=== PATIENT | female | born 1960 | race Caucasian/White ===

== ENCOUNTER 2022-11-18 10:34 | Inpatient (IN) | payer MEDICARE, BC ==
[~2022-11-18] VITALS: Ht 160 cm; Wt 81.6 kg
[2022-11-18 13:55] VITALS: BP 121/56
[2022-11-18] MEDS ORDERED: HEPARIN SOD (PORCINE) 5000UNITS/ML 1ML VIAL/SYRINGE SC SCH (14:40)
[2022-11-18 15:22] LABS: ERYTHROCYTE SEDIMENTATION RATE 66 mm/hr (0-30)
[2022-11-18 15:50] LABS: HEMATOCRIT 30.7 % (36.0-47.0); HEMOGLOBIN 9.5 g/dl (12.0-15.5); MEAN CORPUSCULAR HEMOGLOBIN 26.7 pg (27.0-33.0); MEAN CORPUSCULAR HGB CONC 30.9 g/dl (32.0-36.5); MEAN CORPUSCULAR VOLUME 86.2 fl (80.0-96.0); PLATELET COUNT, AUTOMATED 231 10^3/uL (150-450); RED BLOOD COUNT 3.56 10^6/uL (4.00-5.40); WHITE BLOOD COUNT 17.4 10^3/uL (4.0-10.0)
[2022-11-18 16:02] LABS: BLOOD UREA NITROGEN 28 MG/DL (9-23); CALCIUM LEVEL 7.8 MG/DL (8.3-10.6); CARBON DIOXIDE LEVEL 31 MMOL/L (20-31); CHLORIDE LEVEL 102 MMOL/L (98-107); CREATININE FOR GFR 0.43 MG/DL (0.55-1.30); GLOMERULAR FILTRATION RATE > 60.0 (>45); GLUCOSE, FASTING 160 MG/DL (74-106); MAGNESIUM LEVEL 1.4 MG/DL (1.8-2.4); PHOSPHORUS LEVEL 3.7 MG/DL (2.4-5.1); SODIUM LEVEL 140 MMOL/L (136-145)
[2022-11-18 16:21] LABS: INR 3.58; PROTHROMBIN TIME 36.3 SECONDS (12.5-14.5)
[2022-11-18] MEDS ORDERED: IPRA0.00 INH (16:24)
[2022-11-18] MEDS ORDERED: ALBU2.5V10 INH (16:24)
[2022-11-18] MEDS ORDERED: BREO1INH INH (16:24)
[2022-11-18] MEDS ORDERED: ONDA4TAB6 PO (16:24)
[2022-11-18] MEDS ORDERED: PROB250C PO (16:24)
[2022-11-18] MEDS ORDERED: ACET-910 PO (16:24)
[2022-11-18] MEDS ORDERED: LEXA1TAB PO (16:24)
[2022-11-18] MEDS ORDERED: MAGN400T2 PO (16:24)
[2022-11-18] MEDS ORDERED: PROTPAK PO (16:24)
[2022-11-18] MEDS ORDERED: HYDR-3363 PO (16:24)
[2022-11-18] MEDS ORDERED: NOVOINJ SC (16:24)
[2022-11-18] MEDS ORDERED: METO25TA4 PO (16:24)
[2022-11-18] MEDS ORDERED: HOME MED LIST COMPLETE! XX SCH ×2 (16:25→18:15)
[2022-11-18 18:08] LABS: PERCENT SATURATION 3.5 % (13.2-45.0)
[2022-11-18 18:12] LABS: FOLATE 14.46 NG/ML (>5.4)
[2022-11-18] MEDS ORDERED: CARB1TAB PO (18:12)
[2022-11-18] MEDS ORDERED: TRAM50TA2 PO (18:12)
[2022-11-18] MEDS ORDERED: AMLO1TAB24 PO (18:12)
[2022-11-18] MEDS ORDERED: WARF-20 PO (18:12)
[2022-11-18] MEDS ORDERED: LISI5TAB11 PO (18:12)
[2022-11-18] MEDS: PIPERACILLIN/TAZOBACTAM SOD 3.375 GM in D5W MINI-BAG PLUS 50 ML IV SCH ×2 (18:53→23:40)
[2022-11-18] MEDS: MAG SULF 1GM/100ML (MAG RUN) 1 GM in IV 1 EA IV SCH ×2 (18:54→22:30)
[2022-11-18] MEDS ORDERED: GLUCOSE 4GM CHEW TABLET PO PRN (19:25)
[2022-11-18] MEDS ORDERED: ALBUTEROL SULFATE 2.5MG/0.5ML INH NEB SOLN INH PRN (19:25)
[2022-11-18] MEDS ORDERED: GLUCAGON INJ 1MG VIAL SC PRN (19:25)
[2022-11-18] MEDS ORDERED: ONDANSETRON 4MG ORAL DISINTEGRATING TAB PO PRN (19:25)
[2022-11-18] MEDS ORDERED: DEXTROSE 50% 50ML SYRINGE IV PRN (19:25)
[2022-11-18] MEDS: ADVAIR HFA 230/21MCG INHALER INH SCH (20:00)
[2022-11-18] MEDS: IPRATROPIUM 0.5MG/ALBUTEROL 2.5MG INH SOL UD 3ML (DUONEB) NEB SCH (20:00)
[2022-11-18] MEDS ORDERED: CARB25TA9 PO (20:55)
[2022-11-18] MEDS: INSULIN LISPRO (NovoLOG) PER UNIT SC SCH (21:00)
[2022-11-18 22:00] VITALS: BP 125/57
[2022-11-18] MEDS: NS 1,000 ML IV SCH (22:30)
[2022-11-18] MEDS: SINEMET 25-100 MG TAB PO SCH (22:31)
[2022-11-18] MEDS: METOPROLOL TART 12.5 MG PER 1/2 TAB PO SCH (22:31)
[2022-11-18] MEDS: MAGNESIUM OXIDE 400MG TAB (MAG-OX) PO SCH (22:32)
[2022-11-19] MEDS ORDERED: UNRESOLVED CLARIFICATION ENTRY XX SCH (00:01)
[2022-11-19] MEDS: IPRATROPIUM 0.5MG/ALBUTEROL 2.5MG INH SOL UD 3ML (DUONEB) NEB SCH ×4 (01:27→20:00)
[2022-11-19] MEDS: PIPERACILLIN/TAZOBACTAM SOD 3.375 GM in D5W MINI-BAG PLUS 50 ML IV SCH ×4 (04:46→23:00)
[2022-11-19 05:51] LABS: BASO % 0.2 % (0.0-1.0); EOS # 0.1 10^3/uL (0.0-0.5); EOS % 1.2 % (0.0-3.0); HEMATOCRIT 27.1 % (36.0-47.0); HEMOGLOBIN 8.3 g/dl (12.0-15.5); LYMPH # 0.7 10^3/uL (1.5-5.0); LYMPH % 5.7 % (24.0-44.0); MEAN CORPUSCULAR HEMOGLOBIN 26.3 pg (27.0-33.0); MEAN CORPUSCULAR HGB CONC 30.6 g/dl (32.0-36.5); MEAN CORPUSCULAR VOLUME 85.8 fl (80.0-96.0); MONO # 0.6 10^3/uL (0.0-0.8); MONO % 5.3 % (2.0-8.0); NEUTROPHILS # 10.4 10^3/uL (1.5-8.5); NEUTROPHILS % 86.8 % (36.0-66.0); PLATELET COUNT, AUTOMATED 174 10^3/uL (150-450); RED BLOOD COUNT 3.16 10^6/uL (4.00-5.40)
[2022-11-19 06:00] VITALS: BP 120/58
[2022-11-19 06:21] LABS: BLOOD UREA NITROGEN 25 MG/DL (9-23); CALCIUM LEVEL 7.4 MG/DL (8.3-10.6); CARBON DIOXIDE LEVEL 33 MMOL/L (20-31); CHLORIDE LEVEL 104 MMOL/L (98-107); CREATININE FOR GFR 0.39 MG/DL (0.55-1.30); GLOMERULAR FILTRATION RATE > 60.0 (>45); GLUCOSE, FASTING 175 MG/DL (74-106); MAGNESIUM LEVEL 1.6 MG/DL (1.8-2.4); PHOSPHORUS LEVEL 3.3 MG/DL (2.4-5.1); POTASSIUM SERUM 3.6 MMOL/L (3.5-5.1); SODIUM LEVEL 142 MMOL/L (136-145)
[2022-11-19] MEDS: ADVAIR HFA 230/21MCG INHALER INH SCH ×2 (07:51→21:05)
[2022-11-19] MEDS: INSULIN LISPRO (NovoLOG) PER UNIT SC SCH ×4 (09:17→21:00)
[2022-11-19] MEDS: ESCITALOPRAM OXALATE 10 MG TAB (LEXAPRO) PO SCH (09:18)
[2022-11-19] MEDS: lisinopriL 5 MG TAB PO SCH (09:19)
[2022-11-19] MEDS: MAGNESIUM OXIDE 400MG TAB (MAG-OX) PO SCH ×2 (09:19→21:39)
[2022-11-19] MEDS: METOPROLOL TART 12.5 MG PER 1/2 TAB PO SCH ×2 (09:19→21:39)
[2022-11-19] MEDS: amLODIPine 5 MG TAB PO SCH (09:20)
[2022-11-19] MEDS: SINEMET 25-100 MG TAB PO SCH ×3 (09:20→21:40)
[2022-11-19] MEDS: MAG SULF 1GM/100ML (MAG RUN) 1 GM in IV 1 EA IV SCH ×2 (09:25→13:10)
[2022-11-19] MEDS: NS 1,000 ML IV SCH (09:51)
[2022-11-19 13:15] LABS: INR 4.66; PROTHROMBIN TIME 44.6 SECONDS (12.5-14.5)
[2022-11-19 14:00] VITALS: BP 120/57
[2022-11-19 21:09] VITALS: BP 119/57
[2022-11-19] MEDS: traMADol 50 MG TAB PO PRN (21:40)
[2022-11-19] MEDS: PERCOCET 5MG/325MG TAB PO PRN (23:01)
[2022-11-20] MEDS: IPRATROPIUM 0.5MG/ALBUTEROL 2.5MG INH SOL UD 3ML (DUONEB) NEB SCH ×4 (02:26→20:00)
[2022-11-20] MEDS: PIPERACILLIN/TAZOBACTAM SOD 3.375 GM in D5W MINI-BAG PLUS 50 ML IV SCH ×4 (05:47→23:29)
[2022-11-20] MEDS: traMADol 50 MG TAB PO PRN (05:47)
[2022-11-20 06:00] VITALS: BP 138/72
[2022-11-20 06:21] LABS: HEMATOCRIT 27.6 % (36.0-47.0); HEMOGLOBIN 8.3 g/dl (12.0-15.5); MEAN CORPUSCULAR HEMOGLOBIN 26.2 pg (27.0-33.0); MEAN CORPUSCULAR HGB CONC 30.1 g/dl (32.0-36.5); MEAN CORPUSCULAR VOLUME 87.1 fl (80.0-96.0); PLATELET COUNT, AUTOMATED 134 10^3/uL (150-450); RED BLOOD COUNT 3.17 10^6/uL (4.00-5.40); WHITE BLOOD COUNT 7.9 10^3/uL (4.0-10.0)
[2022-11-20 07:11] LABS: BLOOD UREA NITROGEN 23 MG/DL (9-23); CALCIUM LEVEL 7.3 MG/DL (8.3-10.6); CARBON DIOXIDE LEVEL 32 MMOL/L (20-31); CHLORIDE LEVEL 105 MMOL/L (98-107); CREATININE FOR GFR 0.39 MG/DL (0.55-1.30); GLOMERULAR FILTRATION RATE > 60.0 (>45); GLUCOSE, FASTING 139 MG/DL (74-106); MAGNESIUM LEVEL 1.5 MG/DL (1.8-2.4); PHOSPHORUS LEVEL 3.5 MG/DL (2.4-5.1); POTASSIUM SERUM 3.8 MMOL/L (3.5-5.1); SODIUM LEVEL 143 MMOL/L (136-145)
[2022-11-20 07:56] LABS: INR 2.62; PROTHROMBIN TIME 28.4 SECONDS (12.5-14.5)
[2022-11-20] MEDS: ADVAIR HFA 230/21MCG INHALER INH SCH ×2 (08:22→21:11)
[2022-11-20] MEDS: ESCITALOPRAM OXALATE 10 MG TAB (LEXAPRO) PO SCH (09:13)
[2022-11-20] MEDS: SINEMET 25-100 MG TAB PO SCH ×3 (09:13→21:58)
[2022-11-20] MEDS: MAGNESIUM OXIDE 400MG TAB (MAG-OX) PO SCH ×2 (09:13→22:00)
[2022-11-20] MEDS: lisinopriL 5 MG TAB PO SCH (09:14)
[2022-11-20] MEDS: amLODIPine 5 MG TAB PO SCH (09:14)
[2022-11-20] MEDS: METOPROLOL TART 12.5 MG PER 1/2 TAB PO SCH ×2 (09:15→21:59)
[2022-11-20] MEDS: INSULIN LISPRO (NovoLOG) PER UNIT SC SCH ×4 (09:15→21:00)
[2022-11-20 11:30] LABS: ALBUMIN 1.6 G/DL (3.2-5.2)
[2022-11-20] MEDS ORDERED: WARFARIN SOD 4MG TAB PO ONE (17:00)
[2022-11-20 20:39] VITALS: BP 127/66
[2022-11-20] MEDS: PERCOCET 5MG/325MG TAB PO PRN (22:00)
[2022-11-21] MEDS: IPRATROPIUM 0.5MG/ALBUTEROL 2.5MG INH SOL UD 3ML (DUONEB) NEB SCH ×4 (02:53→20:00)
[2022-11-21] MEDS: PIPERACILLIN/TAZOBACTAM SOD 3.375 GM in D5W MINI-BAG PLUS 50 ML IV SCH ×5 (05:06→22:38)
[2022-11-21 05:27] VITALS: BP 130/65
[2022-11-21 06:23] LABS: HEMATOCRIT 27.7 % (36.0-47.0); HEMOGLOBIN 8.2 g/dl (12.0-15.5); MEAN CORPUSCULAR HEMOGLOBIN 25.9 pg (27.0-33.0); MEAN CORPUSCULAR HGB CONC 29.6 g/dl (32.0-36.5); MEAN CORPUSCULAR VOLUME 87.4 fl (80.0-96.0); PLATELET COUNT, AUTOMATED 116 10^3/uL (150-450); RED BLOOD COUNT 3.17 10^6/uL (4.00-5.40); WHITE BLOOD COUNT 6.9 10^3/uL (4.0-10.0)
[2022-11-21 06:37] LABS: INR 2.43; PROTHROMBIN TIME 26.8 SECONDS (12.5-14.5)
[2022-11-21 06:47] LABS: BLOOD UREA NITROGEN 20 MG/DL (9-23); CALCIUM LEVEL 7.6 MG/DL (8.3-10.6); CARBON DIOXIDE LEVEL 35 MMOL/L (20-31); CHLORIDE LEVEL 106 MMOL/L (98-107); CREATININE FOR GFR 0.42 MG/DL (0.55-1.30); GLOMERULAR FILTRATION RATE > 60.0 (>45); GLUCOSE, FASTING 138 MG/DL (74-106); MAGNESIUM LEVEL 1.5 MG/DL (1.8-2.4); PHOSPHORUS LEVEL 3.5 MG/DL (2.4-5.1); POTASSIUM SERUM 3.9 MMOL/L (3.5-5.1); SODIUM LEVEL 145 MMOL/L (136-145)
[2022-11-21 06:52] LABS: ERYTHROCYTE SEDIMENTATION RATE 53 mm/hr (0-30)
[2022-11-21] MEDS: lisinopriL 5 MG TAB PO SCH (08:16)
[2022-11-21] MEDS: PERCOCET 5MG/325MG TAB PO PRN ×2 (08:16→17:52)
[2022-11-21] MEDS: MAGNESIUM OXIDE 400MG TAB (MAG-OX) PO SCH ×2 (08:17→20:40)
[2022-11-21] MEDS: SINEMET 25-100 MG TAB PO SCH ×3 (08:17→20:41)
[2022-11-21] MEDS: ESCITALOPRAM OXALATE 10 MG TAB (LEXAPRO) PO SCH (08:18)
[2022-11-21] MEDS: METOPROLOL TART 12.5 MG PER 1/2 TAB PO SCH ×2 (08:18→20:40)
[2022-11-21] MEDS: amLODIPine 5 MG TAB PO SCH (08:18)
[2022-11-21] MEDS: INSULIN LISPRO (NovoLOG) PER UNIT SC SCH ×4 (08:19→21:00)
[2022-11-21] MEDS: ADVAIR HFA 230/21MCG INHALER INH SCH ×2 (08:40→20:18)
[2022-11-21 14:00] VITALS: BP 129/61
[2022-11-21] MEDS: WARFARIN SOD 5MG TAB PO SCH (17:53)
[2022-11-21] MEDS ORDERED: PROHANCE 279.3MG/ML 15ML VIAL As Ordered ONE (19:10)
[2022-11-21 20:39] VITALS: BP 130/61
[2022-11-22] MEDS: IPRATROPIUM 0.5MG/ALBUTEROL 2.5MG INH SOL UD 3ML (DUONEB) NEB SCH ×4 (01:11→19:49)
[2022-11-22] MEDS: PIPERACILLIN/TAZOBACTAM SOD 3.375 GM in D5W MINI-BAG PLUS 50 ML IV SCH ×4 (04:48→22:11)
[2022-11-22] MEDS: PERCOCET 5MG/325MG TAB PO PRN ×3 (05:18→19:41)
[2022-11-22 05:22] VITALS: BP 143/66
[2022-11-22 06:26] LABS: HEMATOCRIT 29.3 % (36.0-47.0); HEMOGLOBIN 8.7 g/dl (12.0-15.5); MEAN CORPUSCULAR HEMOGLOBIN 25.7 pg (27.0-33.0); MEAN CORPUSCULAR HGB CONC 29.7 g/dl (32.0-36.5); MEAN CORPUSCULAR VOLUME 86.7 fl (80.0-96.0); PLATELET COUNT, AUTOMATED 120 10^3/uL (150-450); RED BLOOD COUNT 3.38 10^6/uL (4.00-5.40); WHITE BLOOD COUNT 8.6 10^3/uL (4.0-10.0)
[2022-11-22 06:39] LABS: INR 2.69
[2022-11-22 06:43] LABS: ERYTHROCYTE SEDIMENTATION RATE 85 mm/hr (0-30)
[2022-11-22 06:51] LABS: BLOOD UREA NITROGEN 17 MG/DL (9-23); CALCIUM LEVEL 7.4 MG/DL (8.3-10.6); CARBON DIOXIDE LEVEL 35 MMOL/L (20-31); CHLORIDE LEVEL 104 MMOL/L (98-107); CREATININE FOR GFR 0.38 MG/DL (0.55-1.30); GLOMERULAR FILTRATION RATE > 60.0 (>45); GLUCOSE, FASTING 139 MG/DL (74-106); MAGNESIUM LEVEL 1.5 MG/DL (1.8-2.4); PHOSPHORUS LEVEL 2.9 MG/DL (2.4-5.1); SODIUM LEVEL 142 MMOL/L (136-145)
[2022-11-22] MEDS: ADVAIR HFA 230/21MCG INHALER INH SCH ×2 (08:10→19:49)
[2022-11-22] MEDS: SINEMET 25-100 MG TAB PO SCH ×3 (09:34→19:41)
[2022-11-22] MEDS: INSULIN LISPRO (NovoLOG) PER UNIT SC SCH ×4 (09:34→20:13)
[2022-11-22] MEDS: MAGNESIUM OXIDE 400MG TAB (MAG-OX) PO SCH ×2 (09:35→19:42)
[2022-11-22] MEDS: ACETAMINOPHEN TAB 650MG DOSE (2X325MG) PO PRN ×2 (09:35→17:56)
[2022-11-22] MEDS: METOPROLOL TART 12.5 MG PER 1/2 TAB PO SCH ×2 (09:36→19:42)
[2022-11-22] MEDS: traMADol 50 MG TAB PO PRN ×2 (09:37→17:56)
[2022-11-22] MEDS: lisinopriL 5 MG TAB PO SCH (09:37)
[2022-11-22] MEDS: ESCITALOPRAM OXALATE 10 MG TAB (LEXAPRO) PO SCH (09:37)
[2022-11-22] MEDS: amLODIPine 5 MG TAB PO SCH (09:38)
[2022-11-22] MEDS: DOCUSATE SODIUM 100MG CAPSULE PO SCH ×2 (11:50→19:42)
[2022-11-22] MEDS ORDERED: BISACODYL 10MG SUPP PR ONE (11:50)
[2022-11-22 14:00] VITALS: BP 141/66
[2022-11-22] MEDS ORDERED: MAG SULF 1GM/100ML (MAG RUN) 1 GM in IV 1 EA IV ONE (14:00)
[2022-11-22] MEDS: WARFARIN SOD 5MG TAB PO SCH (17:56)
[2022-11-22 20:09] VITALS: BP 135/65
[2022-11-23] MEDS: IPRATROPIUM 0.5MG/ALBUTEROL 2.5MG INH SOL UD 3ML (DUONEB) NEB SCH ×4 (01:36→20:00)
[2022-11-23] MEDS: PIPERACILLIN/TAZOBACTAM SOD 3.375 GM in D5W MINI-BAG PLUS 50 ML IV SCH ×4 (05:35→22:00)
[2022-11-23] MEDS: traMADol 50 MG TAB PO PRN ×2 (05:36→16:34)
[2022-11-23] MEDS: ACETAMINOPHEN TAB 650MG DOSE (2X325MG) PO PRN ×2 (05:36→16:35)
[2022-11-23 06:41] LABS: BASO % 0.3 % (0.0-1.0); EOS # 0.4 10^3/uL (0.0-0.5); EOS % 4.1 % (0.0-3.0); HEMATOCRIT 28.3 % (36.0-47.0); HEMOGLOBIN 8.5 g/dl (12.0-15.5); LYMPH # 1.5 10^3/uL (1.5-5.0); LYMPH % 17.5 % (24.0-44.0); MEAN CORPUSCULAR HEMOGLOBIN 25.8 pg (27.0-33.0); MEAN CORPUSCULAR VOLUME 85.8 fl (80.0-96.0); MONO # 0.4 10^3/uL (0.0-0.8); MONO % 4.5 % (2.0-8.0); NEUTROPHILS # 6.4 10^3/uL (1.5-8.5); NEUTROPHILS % 72.3 % (36.0-66.0); PLATELET COUNT, AUTOMATED 103 10^3/uL (150-450); WHITE BLOOD COUNT 8.8 10^3/uL (4.0-10.0)
[2022-11-23 06:49] LABS: INR 3.36; PROTHROMBIN TIME 34.5 SECONDS (12.5-14.5)
[2022-11-23 07:02] VITALS: BP 135/64
[2022-11-23 07:11] LABS: BLOOD UREA NITROGEN 17 MG/DL (9-23); CALCIUM LEVEL 7.8 MG/DL (8.3-10.6); CARBON DIOXIDE LEVEL 37 MMOL/L (20-31); CHLORIDE LEVEL 105 MMOL/L (98-107); GLOMERULAR FILTRATION RATE > 60.0 (>45); GLUCOSE, FASTING 128 MG/DL (74-106); MAGNESIUM LEVEL 1.6 MG/DL (1.8-2.4); PHOSPHORUS LEVEL 3.4 MG/DL (2.4-5.1); SODIUM LEVEL 144 MMOL/L (136-145)
[2022-11-23] MEDS: ADVAIR HFA 230/21MCG INHALER INH SCH ×2 (08:53→20:05)
[2022-11-23] MEDS: DOCUSATE SODIUM 100MG CAPSULE PO SCH ×2 (09:00→20:42)
[2022-11-23] MEDS: MAGNESIUM OXIDE 400MG TAB (MAG-OX) PO SCH ×3 (09:11→20:41)
[2022-11-23] MEDS: INSULIN LISPRO (NovoLOG) PER UNIT SC SCH ×4 (09:11→21:00)
[2022-11-23] MEDS: SINEMET 25-100 MG TAB PO SCH ×3 (09:12→20:41)
[2022-11-23] MEDS: PERCOCET 5MG/325MG TAB PO PRN ×2 (09:12→20:49)
[2022-11-23] MEDS: ESCITALOPRAM OXALATE 10 MG TAB (LEXAPRO) PO SCH (09:12)
[2022-11-23] MEDS: METOPROLOL TART 12.5 MG PER 1/2 TAB PO SCH ×2 (09:13→20:41)
[2022-11-23] MEDS: lisinopriL 5 MG TAB PO SCH (09:13)
[2022-11-23] MEDS: amLODIPine 5 MG TAB PO SCH (09:13)
[2022-11-23 09:55] LABS: ERYTHROCYTE SEDIMENTATION RATE 51 mm/hr (0-30)
[2022-11-23 14:00] VITALS: BP 132/66
[2022-11-23 20:48] VITALS: BP 133/67
[2022-11-24] MEDS: IPRATROPIUM 0.5MG/ALBUTEROL 2.5MG INH SOL UD 3ML (DUONEB) NEB SCH ×4 (00:50→19:48)
[2022-11-24] MEDS: traMADol 50 MG TAB PO PRN ×2 (01:57→08:31)
[2022-11-24] MEDS: PIPERACILLIN/TAZOBACTAM SOD 3.375 GM in D5W MINI-BAG PLUS 50 ML IV SCH ×3 (04:23→16:54)
[2022-11-24] MEDS: PERCOCET 5MG/325MG TAB PO PRN ×2 (04:32→12:01)
[2022-11-24 05:49] VITALS: BP 136/69
[2022-11-24 06:42] LABS: INR 3.44; PROTHROMBIN TIME 35.2 SECONDS (12.5-14.5)
[2022-11-24 06:44] LABS: BASO % 0.4 % (0.0-1.0); EOS # 0.3 10^3/uL (0.0-0.5); EOS % 3.5 % (0.0-3.0); HEMATOCRIT 27.8 % (36.0-47.0); HEMOGLOBIN 8.4 g/dl (12.0-15.5); LYMPH # 1.4 10^3/uL (1.5-5.0); LYMPH % 16.1 % (24.0-44.0); MEAN CORPUSCULAR HEMOGLOBIN 25.8 pg (27.0-33.0); MEAN CORPUSCULAR HGB CONC 30.2 g/dl (32.0-36.5); MEAN CORPUSCULAR VOLUME 85.5 fl (80.0-96.0); MONO # 0.4 10^3/uL (0.0-0.8); MONO % 4.6 % (2.0-8.0); NEUTROPHILS # 6.3 10^3/uL (1.5-8.5); NEUTROPHILS % 74.4 % (36.0-66.0); RED BLOOD COUNT 3.25 10^6/uL (4.00-5.40); WHITE BLOOD COUNT 8.4 10^3/uL (4.0-10.0)
[2022-11-24 06:51] LABS: PLATELET COUNT, AUTOMATED 96 10^3/uL (150-450)
[2022-11-24 07:18] LABS: BLOOD UREA NITROGEN 20 MG/DL (9-23); CALCIUM LEVEL 7.9 MG/DL (8.3-10.6); CARBON DIOXIDE LEVEL 35 MMOL/L (20-31); CHLORIDE LEVEL 104 MMOL/L (98-107); GLOMERULAR FILTRATION RATE > 60.0 (>45); GLUCOSE, FASTING 143 MG/DL (74-106); MAGNESIUM LEVEL 1.5 MG/DL (1.8-2.4); PHOSPHORUS LEVEL 3.2 MG/DL (2.4-5.1); POTASSIUM SERUM 3.9 MMOL/L (3.5-5.1); SODIUM LEVEL 142 MMOL/L (136-145)
[2022-11-24] MEDS: ADVAIR HFA 230/21MCG INHALER INH SCH ×2 (07:49→19:47)
[2022-11-24] MEDS: METOPROLOL TART 12.5 MG PER 1/2 TAB PO SCH ×2 (08:29→21:46)
[2022-11-24] MEDS: SINEMET 25-100 MG TAB PO SCH ×3 (08:29→21:46)
[2022-11-24] MEDS: MAGNESIUM OXIDE 400MG TAB (MAG-OX) PO SCH ×3 (08:29→21:46)
[2022-11-24] MEDS: DOCUSATE SODIUM 100MG CAPSULE PO SCH (08:29)
[2022-11-24] MEDS: lisinopriL 5 MG TAB PO SCH (08:30)
[2022-11-24] MEDS: ESCITALOPRAM OXALATE 10 MG TAB (LEXAPRO) PO SCH (08:30)
[2022-11-24] MEDS: amLODIPine 5 MG TAB PO SCH (08:30)
[2022-11-24] MEDS: INSULIN LISPRO (NovoLOG) PER UNIT SC SCH ×4 (08:32→21:00)
[2022-11-24] MEDS: DOCUSATE SOD LIQ 100MG/10ML UDC PO SCH (21:46)
[2022-11-24 23:32] VITALS: BP 134/77
[2022-11-25] MEDS: PIPERACILLIN/TAZOBACTAM SOD 3.375 GM in D5W MINI-BAG PLUS 50 ML IV SCH ×3 (00:28→11:29)
[2022-11-25] MEDS: IPRATROPIUM 0.5MG/ALBUTEROL 2.5MG INH SOL UD 3ML (DUONEB) NEB SCH ×4 (01:03→19:42)
[2022-11-25 06:00] VITALS: BP 143/82
[2022-11-25 06:13] LABS: BASO % 0.4 % (0.0-1.0); EOS # 0.3 10^3/uL (0.0-0.5); EOS % 3.6 % (0.0-3.0); HEMATOCRIT 28.4 % (36.0-47.0); HEMOGLOBIN 8.5 g/dl (12.0-15.5); LYMPH # 1.4 10^3/uL (1.5-5.0); LYMPH % 17.7 % (24.0-44.0); MEAN CORPUSCULAR HEMOGLOBIN 25.8 pg (27.0-33.0); MEAN CORPUSCULAR HGB CONC 29.9 g/dl (32.0-36.5); MEAN CORPUSCULAR VOLUME 86.1 fl (80.0-96.0); MONO # 0.4 10^3/uL (0.0-0.8); MONO % 5.3 % (2.0-8.0); NEUTROPHILS # 5.7 10^3/uL (1.5-8.5); NEUTROPHILS % 71.9 % (36.0-66.0); PLATELET COUNT, AUTOMATED 101 10^3/uL (150-450); WHITE BLOOD COUNT 7.9 10^3/uL (4.0-10.0)
[2022-11-25 06:20] LABS: INR 3.26; PROTHROMBIN TIME 33.7 SECONDS (12.5-14.5)
[2022-11-25] MEDS: PERCOCET 5MG/325MG TAB PO PRN ×3 (07:19→18:00)
[2022-11-25 07:42] LABS: BLOOD UREA NITROGEN 18 MG/DL (9-23); CALCIUM LEVEL 7.4 MG/DL (8.3-10.6); CARBON DIOXIDE LEVEL 35 MMOL/L (20-31); CHLORIDE LEVEL 105 MMOL/L (98-107); CREATININE FOR GFR 0.43 MG/DL (0.55-1.30); GLOMERULAR FILTRATION RATE > 60.0 (>45); GLUCOSE, FASTING 105 MG/DL (74-106); MAGNESIUM LEVEL 1.5 MG/DL (1.8-2.4); PHOSPHORUS LEVEL 3.1 MG/DL (2.4-5.1); POTASSIUM SERUM 3.8 MMOL/L (3.5-5.1); SODIUM LEVEL 143 MMOL/L (136-145)
[2022-11-25] MEDS: ADVAIR HFA 230/21MCG INHALER INH SCH ×2 (07:51→19:42)
[2022-11-25 08:00] VITALS: BP 170/82
[2022-11-25] MEDS: DOCUSATE SOD LIQ 100MG/10ML UDC PO SCH ×2 (09:25→21:49)
[2022-11-25] MEDS: SINEMET 25-100 MG TAB PO SCH ×3 (09:25→21:49)
[2022-11-25] MEDS: MAGNESIUM OXIDE 400MG TAB (MAG-OX) PO SCH ×3 (09:26→21:49)
[2022-11-25] MEDS: METOPROLOL TART 12.5 MG PER 1/2 TAB PO SCH ×2 (09:26→21:49)
[2022-11-25] MEDS: lisinopriL 5 MG TAB PO SCH (09:27)
[2022-11-25] MEDS: ESCITALOPRAM OXALATE 10 MG TAB (LEXAPRO) PO SCH (09:27)
[2022-11-25] MEDS: amLODIPine 5 MG TAB PO SCH (09:27)
[2022-11-25] MEDS: INSULIN LISPRO (NovoLOG) PER UNIT SC SCH ×4 (09:32→21:00)
[2022-11-25 14:40] VITALS: BP 132/69
[2022-11-25] MEDS: traMADol 50 MG TAB PO PRN (15:24)
[2022-11-25 22:00] VITALS: BP 130/53
[2022-11-26] MEDS: IPRATROPIUM 0.5MG/ALBUTEROL 2.5MG INH SOL UD 3ML (DUONEB) NEB SCH ×4 (00:58→20:30)
[2022-11-26 06:00] VITALS: BP 110/62
[2022-11-26 06:58] LABS: INR 2.27; PROTHROMBIN TIME 25.4 SECONDS (12.5-14.5)
[2022-11-26] MEDS: ADVAIR HFA 230/21MCG INHALER INH SCH ×2 (07:24→20:30)
[2022-11-26] MEDS: INSULIN LISPRO (NovoLOG) PER UNIT SC SCH ×4 (09:39→20:11)
[2022-11-26] MEDS: SINEMET 25-100 MG TAB PO SCH ×3 (09:42→20:21)
[2022-11-26] MEDS: amLODIPine 5 MG TAB PO SCH (09:42)
[2022-11-26] MEDS: MAGNESIUM OXIDE 400MG TAB (MAG-OX) PO SCH ×3 (09:42→20:20)
[2022-11-26] MEDS: METOPROLOL TART 12.5 MG PER 1/2 TAB PO SCH ×2 (09:42→20:21)
[2022-11-26] MEDS: lisinopriL 5 MG TAB PO SCH (09:42)
[2022-11-26] MEDS: ACETAMINOPHEN TAB 650MG DOSE (2X325MG) PO PRN (09:43)
[2022-11-26] MEDS: ESCITALOPRAM OXALATE 10 MG TAB (LEXAPRO) PO SCH (09:43)
[2022-11-26] MEDS: DOCUSATE SOD LIQ 100MG/10ML UDC PO SCH ×2 (09:43→20:20)
[2022-11-26] MEDS: traMADol 50 MG TAB PO PRN (11:14)
[2022-11-26] MEDS: PERCOCET 5MG/325MG TAB PO PRN ×2 (11:14→20:22)
[2022-11-26] MEDS: PIPERACILLIN/TAZOBACTAM SOD 3.375 GM in D5W MINI-BAG PLUS 50 ML IV SCH ×2 (13:07→18:32)
[2022-11-26 14:00] VITALS: BP 125/64
[2022-11-26 22:10] VITALS: BP 127/66
[2022-11-27] MEDS: PIPERACILLIN/TAZOBACTAM SOD 3.375 GM in D5W MINI-BAG PLUS 50 ML IV SCH ×4 (01:02→18:12)
[2022-11-27] MEDS: IPRATROPIUM 0.5MG/ALBUTEROL 2.5MG INH SOL UD 3ML (DUONEB) NEB SCH ×4 (01:53→20:12)
[2022-11-27 05:41] VITALS: BP 162/79
[2022-11-27] MEDS: PERCOCET 5MG/325MG TAB PO PRN (06:15)
[2022-11-27 07:24] LABS: INR 2.01; PROTHROMBIN TIME 23.1 SECONDS (12.5-14.5)
[2022-11-27] MEDS: ADVAIR HFA 230/21MCG INHALER INH SCH ×2 (07:57→20:13)
[2022-11-27] MEDS: DOCUSATE SOD LIQ 100MG/10ML UDC PO SCH ×2 (08:30→20:50)
[2022-11-27] MEDS: MAGNESIUM OXIDE 400MG TAB (MAG-OX) PO SCH ×3 (08:30→20:50)
[2022-11-27] MEDS: INSULIN LISPRO (NovoLOG) PER UNIT SC SCH ×4 (08:30→20:36)
[2022-11-27] MEDS: SINEMET 25-100 MG TAB PO SCH ×3 (08:30→20:51)
[2022-11-27] MEDS: ESCITALOPRAM OXALATE 10 MG TAB (LEXAPRO) PO SCH (08:31)
[2022-11-27] MEDS: METOPROLOL TART 12.5 MG PER 1/2 TAB PO SCH ×2 (08:32→20:50)
[2022-11-27] MEDS: amLODIPine 5 MG TAB PO SCH (08:32)
[2022-11-27] MEDS: lisinopriL 5 MG TAB PO SCH (08:32)
[2022-11-27] MEDS: traMADol 50 MG TAB PO PRN (11:34)
[2022-11-27] MEDS: ACETAMINOPHEN TAB 650MG DOSE (2X325MG) PO PRN (11:34)
[2022-11-27 14:00] VITALS: BP 142/75
[2022-11-27 16:00] VITALS: BP 162/79
[2022-11-27] MEDS: ARGATROBAN 250 MG in D5W 247.5 ML IV SCH (16:35)
[2022-11-27 17:00] VITALS: BP 155/91
[2022-11-27 20:00] VITALS: BP 150/82
[2022-11-28] VITALS (9 sets, daily range): BP systolic 125–175; BP diastolic 58–81; O2SAT 94
[2022-11-28] MEDS: PIPERACILLIN/TAZOBACTAM SOD 3.375 GM in D5W MINI-BAG PLUS 50 ML IV SCH ×4 (00:59→20:19)
[2022-11-28] MEDS: IPRATROPIUM 0.5MG/ALBUTEROL 2.5MG INH SOL UD 3ML (DUONEB) NEB SCH ×4 (01:09→19:15)
[2022-11-28 04:45] LABS: HEMATOCRIT 28.1 % (36.0-47.0); HEMOGLOBIN 8.6 g/dl (12.0-15.5); MEAN CORPUSCULAR HGB CONC 30.6 g/dl (32.0-36.5); MEAN CORPUSCULAR VOLUME 84.9 fl (80.0-96.0); PLATELET COUNT, AUTOMATED 123 10^3/uL (150-450); RED BLOOD COUNT 3.31 10^6/uL (4.00-5.40); WHITE BLOOD COUNT 8.7 10^3/uL (4.0-10.0)
[2022-11-28 04:56] LABS: INR 2.88; PROTHROMBIN TIME 30.6 SECONDS (12.5-14.5)
[2022-11-28] MEDS ORDERED: levETIRAcetam INJection 1,000 MG in D5W 100 ML IV ONE (05:00)
[2022-11-28 05:11] LABS: ABG BASE EXCESS 6.9 (-2.0-2.0); ABG HCO3 32.3 MEQ/L (22.0-26.0); ABG PARTIAL PRESSURE CO2 50.3 mmHg (35.0-45.0); ABG STANDARD HCO3 30.7 MEQ/L (22.0-26.0); ABG TOTAL CO2 33.8 MEQ/L (23.0-31.0); ABG pH (ARTERIAL) 7.425 UNITS (7.350-7.450)
[2022-11-28 05:43] LABS: BLOOD UREA NITROGEN 16 MG/DL (9-23); CALCIUM LEVEL 7.4 MG/DL (8.3-10.6); CARBON DIOXIDE LEVEL 32 MMOL/L (20-31); CHLORIDE LEVEL 105 MMOL/L (98-107); CREATININE FOR GFR 0.35 MG/DL (0.55-1.30); GLOMERULAR FILTRATION RATE > 60.0 (>45); GLUCOSE, FASTING 127 MG/DL (74-106); MAGNESIUM LEVEL 1.4 MG/DL (1.8-2.4); PHOSPHORUS LEVEL 3.1 MG/DL (2.4-5.1); POTASSIUM SERUM 3.8 MMOL/L (3.5-5.1); SODIUM LEVEL 142 MMOL/L (136-145)
[2022-11-28 06:13] LABS: AMORPHOUS SEDIMENT SMALL (NEGATIVE); APPEARANCE, URINE CLOUDY (CLEAR); BACTERIA, URINE AUTO NEGATIVE (NEGATIVE); BILIRUBIN, URINE AUTO NEGATIVE (NEGATIVE); BLOOD, URINE BLOOD NEGATIVE (NEGATIVE); COLOR, URINE YELLOW (YELLOW); GLUCOSE, URINE (UA) AUTO NEGATIVE (NEGATIVE); KETONE, URINE AUTO TRACE mg/dL (NEGATIVE); LEUKOCYTE ESTERASE, URINE AUTO NEGATIVE (NEGATIVE); NITRITE, URINE AUTO NEGATIVE (NEGATIVE); PROTEIN, URINE AUTO NEGATIVE (NEGATIVE); RBC, URINE AUTO 19 /HPF (0-3); SPECIFIC GRAVITY URINE AUTO 1.017 (1.002-1.035); SQUAMOUS EPITHELIAL CELL UR AU 0 /HPF (0-6); UROBILINOGEN, URINE AUTO 0.2 mg/dL (0.0-2.0); WBC, URINE AUTO 1 /HPF (0-3)
[2022-11-28] MEDS ORDERED: MAG SULF 1GM/100ML (MAG RUN) 1 GM in IV 1 EA IV ONE (07:00)
[2022-11-28] MEDS: INSULIN LISPRO (NovoLOG) PER UNIT SC SCH ×4 (07:30→20:47)
[2022-11-28] MEDS: ADVAIR HFA 230/21MCG INHALER INH SCH ×2 (07:33→19:15)
[2022-11-28] MEDS: DOCUSATE SOD LIQ 100MG/10ML UDC PO SCH ×2 (08:50→20:20)
[2022-11-28] MEDS: MAGNESIUM OXIDE 400MG TAB (MAG-OX) PO SCH ×3 (08:51→20:20)
[2022-11-28] MEDS: SINEMET 25-100 MG TAB PO SCH ×3 (08:51→20:20)
[2022-11-28] MEDS: amLODIPine 5 MG TAB PO SCH (08:54)
[2022-11-28] MEDS: METOPROLOL TART 12.5 MG PER 1/2 TAB PO SCH ×2 (08:54→20:21)
[2022-11-28] MEDS: lisinopriL 5 MG TAB PO SCH (08:55)
[2022-11-28] MEDS: ESCITALOPRAM OXALATE 10 MG TAB (LEXAPRO) PO SCH (09:13)
[2022-11-28] MEDS ORDERED: LIDOCAINE 1% MDV 20ML VIAL As Ordered ONE (12:56)
[2022-11-28] MEDS ORDERED: SODIUM CHLORIDE 0.9% INJ 10 ML SYR IV PRN (15:10)
[2022-11-28 15:52] LABS: INR 1.7; PROTHROMBIN TIME 20.3 SECONDS (12.5-14.5)
[2022-11-28] MEDS: ARGATROBAN 250 MG in D5W 247.5 ML IV SCH (16:00)
[2022-11-28 16:17] LABS: PARTIAL THROMBOPLASTIN TIME 46.9 SECONDS (24.8-34.2)
[2022-11-28] MEDS: SODIUM CHLORIDE 0.9% INJ 10 ML SYR IV SCH (18:26)
[2022-11-28] MEDS: ACETAMINOPHEN TAB 650MG DOSE (2X325MG) PO PRN (20:20)
[2022-11-29] VITALS (7 sets, daily range): BP systolic 124–165; BP diastolic 59–69
[2022-11-29] MEDS: PIPERACILLIN/TAZOBACTAM SOD 3.375 GM in D5W MINI-BAG PLUS 50 ML IV SCH ×4 (01:19→18:44)
[2022-11-29] MEDS: IPRATROPIUM 0.5MG/ALBUTEROL 2.5MG INH SOL UD 3ML (DUONEB) NEB SCH ×4 (01:22→19:54)
[2022-11-29] MEDS: PERCOCET 5MG/325MG TAB PO PRN (05:42)
[2022-11-29] MEDS: SODIUM CHLORIDE 0.9% INJ 10 ML SYR IV SCH ×2 (05:53→18:22)
[2022-11-29 06:20] LABS: INR 3.94; PROTHROMBIN TIME 39.1 SECONDS (12.5-14.5)
[2022-11-29 06:22] LABS: PARTIAL THROMBOPLASTIN TIME 99.2 SECONDS (24.8-34.2)
[2022-11-29] MEDS: ADVAIR HFA 230/21MCG INHALER INH SCH ×2 (07:08→19:54)
[2022-11-29 08:34] LABS: HEMATOCRIT 27.8 % (36.0-47.0); HEMOGLOBIN 8.6 g/dl (12.0-15.5); MEAN CORPUSCULAR HEMOGLOBIN 26.2 pg (27.0-33.0); MEAN CORPUSCULAR HGB CONC 30.9 g/dl (32.0-36.5); MEAN CORPUSCULAR VOLUME 84.8 fl (80.0-96.0); PLATELET COUNT, AUTOMATED 104 10^3/uL (150-450); RED BLOOD COUNT 3.28 10^6/uL (4.00-5.40); WHITE BLOOD COUNT 8.2 10^3/uL (4.0-10.0)
[2022-11-29] MEDS: MAGNESIUM OXIDE 400MG TAB (MAG-OX) PO SCH ×3 (09:27→22:37)
[2022-11-29] MEDS: DOCUSATE SOD LIQ 100MG/10ML UDC PO SCH ×2 (09:27→22:36)
[2022-11-29] MEDS: SINEMET 25-100 MG TAB PO SCH ×3 (09:27→22:37)
[2022-11-29] MEDS: ESCITALOPRAM OXALATE 10 MG TAB (LEXAPRO) PO SCH (09:28)
[2022-11-29] MEDS: METOPROLOL TART 12.5 MG PER 1/2 TAB PO SCH ×2 (09:28→22:38)
[2022-11-29] MEDS: amLODIPine 5 MG TAB PO SCH (09:29)
[2022-11-29] MEDS: INSULIN LISPRO (NovoLOG) PER UNIT SC SCH ×4 (09:29→21:00)
[2022-11-29] MEDS: lisinopriL 5 MG TAB PO SCH (09:30)
[2022-11-29 10:31] LABS: ALKALINE PHOSPHATASE 102 U/L (46-116); ALT/SGPT 9 U/L (7.0-40); AST/SGOT 18 U/L (<34); BILIRUBIN,TOTAL 0.4 MG/DL (0.3-1.2); BLOOD UREA NITROGEN 13 MG/DL (9-23); CALCIUM LEVEL 7.4 MG/DL (8.3-10.6); CARBON DIOXIDE LEVEL 30 MMOL/L (20-31); CHLORIDE LEVEL 104 MMOL/L (98-107); CREATININE FOR GFR 0.38 MG/DL (0.55-1.30); GLOMERULAR FILTRATION RATE > 60.0 (>45); GLUCOSE, FASTING 143 MG/DL (74-106); MAGNESIUM LEVEL 1.4 MG/DL (1.8-2.4); POTASSIUM SERUM 3.5 MMOL/L (3.5-5.1); SODIUM LEVEL 139 MMOL/L (136-145); TOTAL PROTEIN 4.9 G/DL (5.7-8.2)
[2022-11-29 13:45] LABS: INR 1.88; PROTHROMBIN TIME 21.9 SECONDS (12.5-14.5)
[2022-11-29] MEDS ORDERED: WARFARIN SOD 5MG TAB PO ONE (15:00)
[2022-11-29 15:34] LABS: PARTIAL THROMBOPLASTIN TIME 55.4 SECONDS (24.8-34.2)
[2022-11-29] MEDS: ARGATROBAN 250 MG in D5W 247.5 ML IV SCH (16:16)
[2022-11-29] MEDS ORDERED: MIRALAX *UNIT DOSE* 17GM PACKET PO PRN (18:15)
[2022-11-29] MEDS ORDERED: SENNA 8.6 MG TAB (SENOKOT) PO PRN (18:15)
[2022-11-29] MEDS: ACETAMINOPHEN TAB 650MG DOSE (2X325MG) PO PRN (22:38)
[2022-11-30 00:46] VITALS: BP 140/60
[2022-11-30] MEDS: IPRATROPIUM 0.5MG/ALBUTEROL 2.5MG INH SOL UD 3ML (DUONEB) NEB SCH ×3 (01:04→13:16)
[2022-11-30] MEDS: PIPERACILLIN/TAZOBACTAM SOD 3.375 GM in D5W MINI-BAG PLUS 50 ML IV SCH ×4 (01:09→18:43)
[2022-11-30] MEDS: MAGNESIUM OXIDE 400MG TAB (MAG-OX) PO SCH ×4 (02:44→20:12)
[2022-11-30 04:44] VITALS: BP 148/64
[2022-11-30] MEDS: SODIUM CHLORIDE 0.9% INJ 10 ML SYR IV SCH ×2 (05:58→18:42)
[2022-11-30 07:25] LABS: INR 2.57
[2022-11-30 07:27] LABS: PARTIAL THROMBOPLASTIN TIME 81.8 SECONDS (24.8-34.2)
[2022-11-30 08:00] VITALS: BP 152/75
[2022-11-30] MEDS: ADVAIR HFA 230/21MCG INHALER INH SCH ×2 (08:00→19:12)
[2022-11-30] MEDS ORDERED: WARFARIN SOD 4MG TAB PO SCH (09:00)
[2022-11-30] MEDS: INSULIN LISPRO (NovoLOG) PER UNIT SC SCH ×4 (09:00→20:06)
[2022-11-30] MEDS: MAG SULF 1GM/100ML (MAG RUN) 1 GM in IV 1 EA IV SCH ×2 (09:01→10:51)
[2022-11-30] MEDS: ESCITALOPRAM OXALATE 10 MG TAB (LEXAPRO) PO SCH (09:01)
[2022-11-30] MEDS: DOCUSATE SOD LIQ 100MG/10ML UDC PO SCH ×2 (09:01→20:13)
[2022-11-30] MEDS: METOPROLOL TART 12.5 MG PER 1/2 TAB PO SCH ×2 (09:02→20:12)
[2022-11-30] MEDS: amLODIPine 5 MG TAB PO SCH (09:02)
[2022-11-30] MEDS: SINEMET 25-100 MG TAB PO SCH ×3 (09:03→20:13)
[2022-11-30] MEDS: lisinopriL 5 MG TAB PO SCH (09:03)
[2022-11-30 09:04] LABS: BASO % 0.6 % (0.0-1.0); EOS # 0.2 10^3/uL (0.0-0.5); EOS % 2.3 % (0.0-3.0); HEMATOCRIT 28.7 % (36.0-47.0); HEMOGLOBIN 8.9 g/dl (12.0-15.5); LYMPH # 1.2 10^3/uL (1.5-5.0); LYMPH % 18.3 % (24.0-44.0); MEAN CORPUSCULAR HEMOGLOBIN 26.5 pg (27.0-33.0); MEAN CORPUSCULAR VOLUME 85.4 fl (80.0-96.0); MONO # 0.4 10^3/uL (0.0-0.8); MONO % 6.5 % (2.0-8.0); NEUTROPHILS # 4.7 10^3/uL (1.5-8.5); NEUTROPHILS % 71.7 % (36.0-66.0); PLATELET COUNT, AUTOMATED 136 10^3/uL (150-450); RED BLOOD COUNT 3.36 10^6/uL (4.00-5.40); WHITE BLOOD COUNT 6.5 10^3/uL (4.0-10.0)
[2022-11-30 09:12] LABS: BLOOD UREA NITROGEN 13 MG/DL (9-23); CARBON DIOXIDE LEVEL 33 MMOL/L (20-31); CHLORIDE LEVEL 104 MMOL/L (98-107); CREATININE FOR GFR 0.35 MG/DL (0.55-1.30); GLOMERULAR FILTRATION RATE > 60.0 (>45); GLUCOSE, FASTING 113 MG/DL (74-106); MAGNESIUM LEVEL 1.3 MG/DL (1.8-2.4); POTASSIUM SERUM 3.6 MMOL/L (3.5-5.1); SODIUM LEVEL 142 MMOL/L (136-145)
[2022-11-30 11:58] LABS: INR 2.81
[2022-11-30 12:00] VITALS: BP 131/62
[2022-11-30] MEDS: PERCOCET 5MG/325MG TAB PO PRN ×2 (14:00→20:14)
[2022-11-30 16:00] VITALS: BP 120/58
[2022-11-30] MEDS: ARGATROBAN 250 MG in D5W 247.5 ML IV SCH (16:32)
[2022-11-30] MEDS ORDERED: WARFARIN SOD 5MG TAB PO SCH (17:00)
[2022-11-30 20:00] VITALS: BP 113/58
[2022-12-01] VITALS: BP 123/59
[2022-12-01] MEDS: PIPERACILLIN/TAZOBACTAM SOD 3.375 GM in D5W MINI-BAG PLUS 50 ML IV SCH ×4 (01:11→18:50)
[2022-12-01] MEDS: MAGNESIUM OXIDE 400MG TAB (MAG-OX) PO SCH ×4 (02:48→20:43)
[2022-12-01] MEDS: PERCOCET 5MG/325MG TAB PO PRN ×3 (03:20→20:47)
[2022-12-01 04:00] VITALS: BP 130/71
[2022-12-01] MEDS: SODIUM CHLORIDE 0.9% INJ 10 ML SYR IV SCH ×2 (05:11→18:50)
[2022-12-01 05:47] LABS: BASO % 0.5 % (0.0-1.0); EOS # 0.2 10^3/uL (0.0-0.5); EOS % 2.6 % (0.0-3.0); LYMPH # 1.5 10^3/uL (1.5-5.0); MEAN CORPUSCULAR HEMOGLOBIN 25.8 pg (27.0-33.0); MONO # 0.5 10^3/uL (0.0-0.8); NEUTROPHILS % 68.4 % (36.0-66.0); PLATELET COUNT, AUTOMATED 143 10^3/uL (150-450); RED BLOOD COUNT 3.49 10^6/uL (4.00-5.40); WHITE BLOOD COUNT 7.3 10^3/uL (4.0-10.0)
[2022-12-01 06:08] LABS: BLOOD UREA NITROGEN 13 MG/DL (9-23); CALCIUM LEVEL 7.7 MG/DL (8.3-10.6); CARBON DIOXIDE LEVEL 33 MMOL/L (20-31); CHLORIDE LEVEL 103 MMOL/L (98-107); CREATININE FOR GFR 0.39 MG/DL (0.55-1.30); GLOMERULAR FILTRATION RATE > 60.0 (>45); GLUCOSE, FASTING 112 MG/DL (74-106); MAGNESIUM LEVEL 1.6 MG/DL (1.8-2.4); POTASSIUM SERUM 3.6 MMOL/L (3.5-5.1); SODIUM LEVEL 139 MMOL/L (136-145)
[2022-12-01 06:11] LABS: INR 2.67; PROTHROMBIN TIME 28.9 SECONDS (12.5-14.5)
[2022-12-01] MEDS: ADVAIR HFA 230/21MCG INHALER INH SCH ×2 (07:16→19:49)
[2022-12-01] MEDS ORDERED: MAG SULF 1GM/100ML (MAG RUN) 1 GM in IV 1 EA IV ONE (07:45)
[2022-12-01 08:00] VITALS: BP 147/65
[2022-12-01] MEDS: DOCUSATE SOD LIQ 100MG/10ML UDC PO SCH ×2 (09:06→20:43)
[2022-12-01] MEDS: INSULIN LISPRO (NovoLOG) PER UNIT SC SCH ×4 (09:06→21:00)
[2022-12-01] MEDS: SINEMET 25-100 MG TAB PO SCH ×3 (09:07→20:43)
[2022-12-01] MEDS: METOPROLOL TART 12.5 MG PER 1/2 TAB PO SCH ×2 (09:07→20:45)
[2022-12-01] MEDS: ESCITALOPRAM OXALATE 10 MG TAB (LEXAPRO) PO SCH (09:08)
[2022-12-01] MEDS: lisinopriL 5 MG TAB PO SCH (09:08)
[2022-12-01] MEDS: amLODIPine 5 MG TAB PO SCH (09:09)
[2022-12-01 12:00] VITALS: BP 132/60
[2022-12-01 12:31] LABS: INR 1.8; PROTHROMBIN TIME 21.2 SECONDS (12.5-14.5)
[2022-12-01] MEDS: ARGATROBAN 250 MG in D5W 247.5 ML IV SCH (12:55)
[2022-12-01 16:21] VITALS: BP 121/56
[2022-12-01] MEDS: WARFARIN SOD 7.5MG TAB PO SCH (18:50)
[2022-12-01 20:00] VITALS: BP 136/63
[2022-12-02] VITALS: BP 132/66
[2022-12-02] MEDS: PIPERACILLIN/TAZOBACTAM SOD 3.375 GM in D5W MINI-BAG PLUS 50 ML IV SCH ×2 (00:46→06:11)
[2022-12-02] MEDS: traMADol 50 MG TAB PO PRN ×2 (01:11→15:50)
[2022-12-02] MEDS: MAGNESIUM OXIDE 400MG TAB (MAG-OX) PO SCH ×4 (02:36→20:46)
[2022-12-02] MEDS: PERCOCET 5MG/325MG TAB PO PRN ×2 (02:45→12:09)
[2022-12-02 04:00] VITALS: BP 140/62
[2022-12-02 05:35] LABS: BASO % 0.4 % (0.0-1.0); EOS # 0.2 10^3/uL (0.0-0.5); HEMATOCRIT 28.4 % (36.0-47.0); HEMOGLOBIN 8.6 g/dl (12.0-15.5); LYMPH # 1.3 10^3/uL (1.5-5.0); LYMPH % 19.4 % (24.0-44.0); MEAN CORPUSCULAR HEMOGLOBIN 25.8 pg (27.0-33.0); MEAN CORPUSCULAR HGB CONC 30.3 g/dl (32.0-36.5); MEAN CORPUSCULAR VOLUME 85.3 fl (80.0-96.0); MONO # 0.5 10^3/uL (0.0-0.8); NEUTROPHILS # 4.7 10^3/uL (1.5-8.5); NEUTROPHILS % 68.8 % (36.0-66.0); PLATELET COUNT, AUTOMATED 141 10^3/uL (150-450); RED BLOOD COUNT 3.33 10^6/uL (4.00-5.40); WHITE BLOOD COUNT 6.8 10^3/uL (4.0-10.0)
[2022-12-02 05:46] LABS: INR 2.99; PROTHROMBIN TIME 31.5 SECONDS (12.5-14.5)
[2022-12-02] MEDS: SODIUM CHLORIDE 0.9% INJ 10 ML SYR IV SCH ×2 (06:11→15:20)
[2022-12-02 06:17] LABS: BLOOD UREA NITROGEN 13 MG/DL (9-23); CALCIUM LEVEL 7.5 MG/DL (8.3-10.6); CARBON DIOXIDE LEVEL 35 MMOL/L (20-31); CHLORIDE LEVEL 103 MMOL/L (98-107); CREATININE FOR GFR 0.39 MG/DL (0.55-1.30); GLOMERULAR FILTRATION RATE > 60.0 (>45); GLUCOSE, FASTING 127 MG/DL (74-106); MAGNESIUM LEVEL 1.6 MG/DL (1.8-2.4); POTASSIUM SERUM 3.7 MMOL/L (3.5-5.1); SODIUM LEVEL 140 MMOL/L (136-145)
[2022-12-02] MEDS ORDERED: MAG SULF 1GM/100ML (MAG RUN) 1 GM in IV 1 EA IV ONE (07:35)
[2022-12-02] MEDS: ADVAIR HFA 230/21MCG INHALER INH SCH ×2 (07:35→19:49)
[2022-12-02 08:15] VITALS: BP 113/57
[2022-12-02] MEDS: INSULIN LISPRO (NovoLOG) PER UNIT SC SCH ×4 (08:22→20:31)
[2022-12-02] MEDS: amLODIPine 5 MG TAB PO SCH (08:22)
[2022-12-02] MEDS: ESCITALOPRAM OXALATE 10 MG TAB (LEXAPRO) PO SCH (08:23)
[2022-12-02] MEDS: METOPROLOL TART 12.5 MG PER 1/2 TAB PO SCH ×2 (08:23→20:49)
[2022-12-02] MEDS: DOCUSATE SOD LIQ 100MG/10ML UDC PO SCH (08:23)
[2022-12-02] MEDS: SINEMET 25-100 MG TAB PO SCH ×3 (08:23→20:46)
[2022-12-02] MEDS: lisinopriL 5 MG TAB PO SCH (08:23)
[2022-12-02] MEDS ORDERED: DOCUSATE SOD LIQ 100MG/10ML UDC PO PRN (08:45)
[2022-12-02 11:11] LABS: INR 2.09; PROTHROMBIN TIME 23.8 SECONDS (12.5-14.5)
[2022-12-02 12:00] VITALS: BP 134/63
[2022-12-02] MEDS: AUGMENTIN 875 MG TAB PO SCH ×2 (12:09→20:47)
[2022-12-02] MEDS ORDERED: WARFARIN SOD 2.5MG TAB PO ONE (13:00)
[2022-12-02] MEDS: WARFARIN SOD 7.5MG TAB PO SCH (15:20)
[2022-12-02 15:23] VITALS: BP 137/63
[2022-12-02 20:00] VITALS: BP 114/55
[2022-12-03] VITALS: BP 144/69
[2022-12-03] MEDS: ACETAMINOPHEN TAB 650MG DOSE (2X325MG) PO PRN ×2 (00:26→20:27)
[2022-12-03] MEDS: PERCOCET 5MG/325MG TAB PO PRN ×3 (01:29→16:27)
[2022-12-03] MEDS: MAGNESIUM OXIDE 400MG TAB (MAG-OX) PO SCH ×4 (03:00→20:26)
[2022-12-03 04:14] LABS: BASO % 0.6 % (0.0-1.0); EOS # 0.1 10^3/uL (0.0-0.5); HEMATOCRIT 27.2 % (36.0-47.0); HEMOGLOBIN 8.2 g/dl (12.0-15.5); LYMPH # 1.1 10^3/uL (1.5-5.0); LYMPH % 16.9 % (24.0-44.0); MEAN CORPUSCULAR HEMOGLOBIN 26.1 pg (27.0-33.0); MEAN CORPUSCULAR HGB CONC 30.1 g/dl (32.0-36.5); MEAN CORPUSCULAR VOLUME 86.6 fl (80.0-96.0); MONO # 0.5 10^3/uL (0.0-0.8); MONO % 7.9 % (2.0-8.0); NEUTROPHILS # 4.8 10^3/uL (1.5-8.5); NEUTROPHILS % 72.3 % (36.0-66.0); PLATELET COUNT, AUTOMATED 157 10^3/uL (150-450); RED BLOOD COUNT 3.14 10^6/uL (4.00-5.40); WHITE BLOOD COUNT 6.6 10^3/uL (4.0-10.0)
[2022-12-03 04:20] VITALS: BP 122/73
[2022-12-03 04:25] LABS: INR 1.84; PROTHROMBIN TIME 21.6 SECONDS (12.5-14.5)
[2022-12-03 04:28] LABS: BLOOD UREA NITROGEN 13 MG/DL (9-23); CALCIUM LEVEL 7.5 MG/DL (8.3-10.6); CARBON DIOXIDE LEVEL 39 MMOL/L (20-31); CHLORIDE LEVEL 102 MMOL/L (98-107); CREATININE FOR GFR 0.38 MG/DL (0.55-1.30); GLOMERULAR FILTRATION RATE > 60.0 (>45); GLUCOSE, FASTING 128 MG/DL (74-106); MAGNESIUM LEVEL 1.6 MG/DL (1.8-2.4); POTASSIUM SERUM 3.8 MMOL/L (3.5-5.1); SODIUM LEVEL 142 MMOL/L (136-145)
[2022-12-03] MEDS: SODIUM CHLORIDE 0.9% INJ 10 ML SYR IV SCH (05:05)
[2022-12-03] MEDS ORDERED: ARGATROBAN 50 MG in IV 1 EA IV SCH (07:00)
[2022-12-03] MEDS: ADVAIR HFA 230/21MCG INHALER INH SCH ×2 (07:39→20:12)
[2022-12-03 07:48] VITALS: BP 128/62
[2022-12-03] MEDS: INSULIN LISPRO (NovoLOG) PER UNIT SC SCH ×4 (09:33→20:50)
[2022-12-03] MEDS: SINEMET 25-100 MG TAB PO SCH ×3 (09:33→20:26)
[2022-12-03] MEDS: METOPROLOL TART 12.5 MG PER 1/2 TAB PO SCH ×2 (09:33→20:27)
[2022-12-03] MEDS: amLODIPine 5 MG TAB PO SCH (09:34)
[2022-12-03] MEDS: AUGMENTIN 875 MG TAB PO SCH ×2 (09:34→20:26)
[2022-12-03] MEDS: ESCITALOPRAM OXALATE 10 MG TAB (LEXAPRO) PO SCH (09:34)
[2022-12-03] MEDS: lisinopriL 5 MG TAB PO SCH (09:34)
[2022-12-03] MEDS: ARGATROBAN 250 MG/250ML for non-ESRD patients IV SCH ×4 (11:51→21:20)
[2022-12-03 12:00] VITALS: BP 147/66
[2022-12-03 15:31] VITALS: BP 157/71
[2022-12-03] MEDS: WARFARIN SOD 7.5MG TAB PO SCH (16:28)
[2022-12-03 19:57] VITALS: BP 157/71
[2022-12-04] VITALS (8 sets, daily range): BP systolic 128–164; BP diastolic 60–96
[2022-12-04] MEDS: MAGNESIUM OXIDE 400MG TAB (MAG-OX) PO SCH ×4 (02:36→22:15)
[2022-12-04] MEDS: PERCOCET 5MG/325MG TAB PO PRN ×3 (02:37→22:18)
[2022-12-04 05:24] LABS: BASO # 0.1 10^3/uL (0.0-0.2); BASO % 0.7 % (0.0-1.0); EOS # 0.2 10^3/uL (0.0-0.5); EOS % 2.2 % (0.0-3.0); HEMATOCRIT 29.8 % (36.0-47.0); HEMOGLOBIN 9.2 g/dl (12.0-15.5); LYMPH # 1.1 10^3/uL (1.5-5.0); LYMPH % 15.4 % (24.0-44.0); MEAN CORPUSCULAR HEMOGLOBIN 26.7 pg (27.0-33.0); MEAN CORPUSCULAR HGB CONC 30.9 g/dl (32.0-36.5); MEAN CORPUSCULAR VOLUME 86.4 fl (80.0-96.0); MONO # 0.6 10^3/uL (0.0-0.8); MONO % 8.4 % (2.0-8.0); NEUTROPHILS # 5.2 10^3/uL (1.5-8.5); PLATELET COUNT, AUTOMATED 203 10^3/uL (150-450); RED BLOOD COUNT 3.45 10^6/uL (4.00-5.40); WHITE BLOOD COUNT 7.1 10^3/uL (4.0-10.0)
[2022-12-04 05:42] LABS: BLOOD UREA NITROGEN 9 MG/DL (9-23); CALCIUM LEVEL 7.5 MG/DL (8.3-10.6); CARBON DIOXIDE LEVEL 35 MMOL/L (20-31); CHLORIDE LEVEL 101 MMOL/L (98-107); CREATININE FOR GFR 0.33 MG/DL (0.55-1.30); GLOMERULAR FILTRATION RATE > 60.0 (>45); GLUCOSE, FASTING 137 MG/DL (74-106); INR 3.17; MAGNESIUM LEVEL 1.3 MG/DL (1.8-2.4); POTASSIUM SERUM 3.7 MMOL/L (3.5-5.1); SODIUM LEVEL 140 MMOL/L (136-145)
[2022-12-04] MEDS ORDERED: WARFARIN SOD 2.5MG TAB PO ONE (07:15)
[2022-12-04] MEDS: ADVAIR HFA 230/21MCG INHALER INH SCH ×2 (07:26→19:48)
[2022-12-04] MEDS: INSULIN LISPRO (NovoLOG) PER UNIT SC SCH ×4 (07:58→21:00)
[2022-12-04] MEDS: AUGMENTIN 875 MG TAB PO SCH ×2 (07:58→22:15)
[2022-12-04] MEDS: METOPROLOL TART 12.5 MG PER 1/2 TAB PO SCH ×2 (07:59→22:16)
[2022-12-04] MEDS: SINEMET 25-100 MG TAB PO SCH ×3 (07:59→22:15)
[2022-12-04] MEDS: traMADol 50 MG TAB PO PRN (07:59)
[2022-12-04] MEDS: amLODIPine 5 MG TAB PO SCH (08:00)
[2022-12-04] MEDS: ESCITALOPRAM OXALATE 10 MG TAB (LEXAPRO) PO SCH (08:00)
[2022-12-04] MEDS: lisinopriL 5 MG TAB PO SCH (08:01)
[2022-12-04 14:31] LABS: INR 3.47; PROTHROMBIN TIME 35.4 SECONDS (12.5-14.5)
[2022-12-04] MEDS: ARGATROBAN 50MG/50ML for non-ESRD patients IV SCH ×2 (18:03)
[2022-12-04] MEDS: WARFARIN SOD 7.5MG TAB PO SCH (18:03)
[2022-12-05] VITALS: BP 150/68
[2022-12-05 04:07] VITALS: BP 139/72
[2022-12-05] MEDS: MAGNESIUM OXIDE 400MG TAB (MAG-OX) PO SCH ×4 (04:27→21:29)
[2022-12-05 05:26] LABS: BASO # 0.1 10^3/uL (0.0-0.2); BASO % 0.7 % (0.0-1.0); EOS # 0.2 10^3/uL (0.0-0.5); EOS % 2.5 % (0.0-3.0); HEMATOCRIT 29.3 % (36.0-47.0); LYMPH # 1.2 10^3/uL (1.5-5.0); LYMPH % 15.3 % (24.0-44.0); MEAN CORPUSCULAR HEMOGLOBIN 26.4 pg (27.0-33.0); MEAN CORPUSCULAR HGB CONC 30.7 g/dl (32.0-36.5); MEAN CORPUSCULAR VOLUME 85.9 fl (80.0-96.0); MONO # 0.7 10^3/uL (0.0-0.8); MONO % 8.2 % (2.0-8.0); NEUTROPHILS # 5.9 10^3/uL (1.5-8.5); NEUTROPHILS % 72.9 % (36.0-66.0); PLATELET COUNT, AUTOMATED 225 10^3/uL (150-450); RED BLOOD COUNT 3.41 10^6/uL (4.00-5.40)
[2022-12-05 05:40] LABS: INR 3.56; PROTHROMBIN TIME 36.1 SECONDS (12.5-14.5)
[2022-12-05 05:41] LABS: PARTIAL THROMBOPLASTIN TIME 94.5 SECONDS (24.8-34.2)
[2022-12-05 05:55] LABS: BLOOD UREA NITROGEN 9 MG/DL (9-23); CALCIUM LEVEL 7.7 MG/DL (8.3-10.6); CARBON DIOXIDE LEVEL 35 MMOL/L (20-31); CHLORIDE LEVEL 101 MMOL/L (98-107); CREATININE FOR GFR 0.32 MG/DL (0.55-1.30); GLOMERULAR FILTRATION RATE > 60.0 (>45); GLUCOSE, FASTING 138 MG/DL (74-106); MAGNESIUM LEVEL 1.4 MG/DL (1.8-2.4); POTASSIUM SERUM 3.7 MMOL/L (3.5-5.1); SODIUM LEVEL 140 MMOL/L (136-145)
[2022-12-05 07:23] VITALS: BP 155/73
[2022-12-05] MEDS: INSULIN LISPRO (NovoLOG) PER UNIT SC SCH ×4 (07:30→21:00)
[2022-12-05] MEDS: ADVAIR HFA 230/21MCG INHALER INH SCH ×2 (08:06→19:10)
[2022-12-05] MEDS: SINEMET 25-100 MG TAB PO SCH ×3 (08:09→21:29)
[2022-12-05] MEDS: AUGMENTIN 875 MG TAB PO SCH ×2 (08:10→21:29)
[2022-12-05] MEDS: ESCITALOPRAM OXALATE 10 MG TAB (LEXAPRO) PO SCH (08:10)
[2022-12-05] MEDS: PERCOCET 5MG/325MG TAB PO PRN ×2 (08:10→21:30)
[2022-12-05] MEDS: METOPROLOL TART 12.5 MG PER 1/2 TAB PO SCH ×2 (08:12→21:31)
[2022-12-05] MEDS: amLODIPine 5 MG TAB PO SCH (08:12)
[2022-12-05] MEDS: lisinopriL 5 MG TAB PO SCH (08:13)
[2022-12-05] MEDS: ARGATROBAN 50MG/50ML for non-ESRD patients IV SCH ×2 (10:00)
[2022-12-05 12:00] VITALS: BP 157/67
[2022-12-05] MEDS: MAG SULF 1GM/100ML (MAG RUN) 1 GM in IV 1 EA IV SCH ×2 (13:00→13:01)
[2022-12-05 16:46] VITALS: BP 137/65
[2022-12-05] MEDS ORDERED: WARFARIN SOD 5MG TAB PO SCH (17:00)
[2022-12-05 20:00] VITALS: BP 134/67
[2022-12-05] MEDS: traMADol 50 MG TAB PO PRN (21:31)
[2022-12-06] VITALS (8 sets, daily range): BP systolic 108–158; BP diastolic 57–79
[2022-12-06] MEDS: MAGNESIUM OXIDE 400MG TAB (MAG-OX) PO SCH ×4 (04:46→21:07)
[2022-12-06 05:10] LABS: BASO # 0.1 10^3/uL (0.0-0.2); BASO % 1.1 % (0.0-1.0); EOS # 0.2 10^3/uL (0.0-0.5); EOS % 3.7 % (0.0-3.0); HEMATOCRIT 27.7 % (36.0-47.0); HEMOGLOBIN 8.2 g/dl (12.0-15.5); LYMPH # 1.3 10^3/uL (1.5-5.0); LYMPH % 23.5 % (24.0-44.0); MEAN CORPUSCULAR HGB CONC 29.6 g/dl (32.0-36.5); MEAN CORPUSCULAR VOLUME 87.9 fl (80.0-96.0); MONO # 0.6 10^3/uL (0.0-0.8); MONO % 10.3 % (2.0-8.0); NEUTROPHILS # 3.3 10^3/uL (1.5-8.5); PLATELET COUNT, AUTOMATED 206 10^3/uL (150-450); RED BLOOD COUNT 3.15 10^6/uL (4.00-5.40); WHITE BLOOD COUNT 5.5 10^3/uL (4.0-10.0)
[2022-12-06 05:39] LABS: BLOOD UREA NITROGEN 9 MG/DL (9-23); CALCIUM LEVEL 7.5 MG/DL (8.3-10.6); CARBON DIOXIDE LEVEL 30 MMOL/L (20-31); CHLORIDE LEVEL 104 MMOL/L (98-107); CREATININE FOR GFR 0.37 MG/DL (0.55-1.30); GLOMERULAR FILTRATION RATE > 60.0 (>45); GLUCOSE, FASTING 115 MG/DL (74-106); MAGNESIUM LEVEL 1.4 MG/DL (1.8-2.4); SODIUM LEVEL 141 MMOL/L (136-145)
[2022-12-06] MEDS: ADVAIR HFA 230/21MCG INHALER INH SCH ×2 (08:09→20:00)
[2022-12-06] MEDS ORDERED: FUROSEMIDE 20 MG TAB PO SCH (09:00)
[2022-12-06] MEDS ORDERED: MAG SULF 1GM/100ML (MAG RUN) 1 GM in IV 1 EA IV ONE (09:30)
[2022-12-06] MEDS: INSULIN LISPRO (NovoLOG) PER UNIT SC SCH ×4 (10:15→21:00)
[2022-12-06 10:17] LABS: INR 2.93
[2022-12-06] MEDS: lisinopriL 5 MG TAB PO SCH (10:31)
[2022-12-06] MEDS: SINEMET 25-100 MG TAB PO SCH ×3 (10:31→21:07)
[2022-12-06] MEDS: AUGMENTIN 875 MG TAB PO SCH ×2 (10:31→21:07)
[2022-12-06] MEDS: amLODIPine 5 MG TAB PO SCH (10:32)
[2022-12-06] MEDS: METOPROLOL TART 12.5 MG PER 1/2 TAB PO SCH ×2 (10:32→21:08)
[2022-12-06] MEDS: traMADol 50 MG TAB PO PRN ×2 (10:33→21:06)
[2022-12-06] MEDS: ESCITALOPRAM OXALATE 10 MG TAB (LEXAPRO) PO SCH (10:33)
[2022-12-06] MEDS: PERCOCET 5MG/325MG TAB PO PRN (15:43)
[2022-12-06] MEDS ORDERED: WARFARIN SOD 5MG TAB PO SCH (17:00)
[2022-12-07] MEDS: traMADol 50 MG TAB PO PRN (02:47)
[2022-12-07] MEDS: MAGNESIUM OXIDE 400MG TAB (MAG-OX) PO SCH ×2 (02:47→09:37)
[2022-12-07] MEDS: PERCOCET 5MG/325MG TAB PO PRN (05:08)
[2022-12-07 06:16] VITALS: BP 146/77
[2022-12-07 06:28] LABS: BASO # 0.1 10^3/uL (0.0-0.2); BASO % 0.7 % (0.0-1.0); EOS # 0.2 10^3/uL (0.0-0.5); EOS % 2.4 % (0.0-3.0); HEMATOCRIT 31.3 % (36.0-47.0); HEMOGLOBIN 9.3 g/dl (12.0-15.5); LYMPH % 14.4 % (24.0-44.0); MEAN CORPUSCULAR HEMOGLOBIN 25.8 pg (27.0-33.0); MEAN CORPUSCULAR HGB CONC 29.7 g/dl (32.0-36.5); MEAN CORPUSCULAR VOLUME 86.7 fl (80.0-96.0); MONO # 0.6 10^3/uL (0.0-0.8); NEUTROPHILS # 5.2 10^3/uL (1.5-8.5); NEUTROPHILS % 74.4 % (36.0-66.0); PLATELET COUNT, AUTOMATED 252 10^3/uL (150-450); RED BLOOD COUNT 3.61 10^6/uL (4.00-5.40)
[2022-12-07 06:57] LABS: BLOOD UREA NITROGEN 9 MG/DL (9-23); CALCIUM LEVEL 7.8 MG/DL (8.3-10.6); CARBON DIOXIDE LEVEL 37 MMOL/L (20-31); CHLORIDE LEVEL 102 MMOL/L (98-107); CREATININE FOR GFR 0.35 MG/DL (0.55-1.30); GLOMERULAR FILTRATION RATE > 60.0 (>45); GLUCOSE, FASTING 144 MG/DL (74-106); MAGNESIUM LEVEL 1.4 MG/DL (1.8-2.4); POTASSIUM SERUM 3.8 MMOL/L (3.5-5.1); SODIUM LEVEL 142 MMOL/L (136-145)
[2022-12-07] MEDS: ADVAIR HFA 230/21MCG INHALER INH SCH (07:59)
[2022-12-07 08:27] LABS: INR 3.03; PROTHROMBIN TIME 31.9 SECONDS (12.5-14.5)
[2022-12-07 09:37] VITALS: BP 146/77
[2022-12-07] MEDS: METOPROLOL TART 12.5 MG PER 1/2 TAB PO SCH (09:37)
[2022-12-07] MEDS: lisinopriL 5 MG TAB PO SCH (09:37)
[2022-12-07] MEDS: ESCITALOPRAM OXALATE 10 MG TAB (LEXAPRO) PO SCH (09:37)
[2022-12-07] MEDS: AUGMENTIN 875 MG TAB PO SCH (09:37)
[2022-12-07] MEDS: amLODIPine 5 MG TAB PO SCH (09:37)
[2022-12-07] MEDS: INSULIN LISPRO (NovoLOG) PER UNIT SC SCH (09:38)
[2022-12-07] MEDS: SINEMET 25-100 MG TAB PO SCH (09:38)
[2022-12-07] MEDS ORDERED: FURO20TA2 PO (10:12)
[2022-12-07] MEDS ORDERED: MIRA1POW3 PO (10:12)
[2022-12-07] MEDS ORDERED: MAGN400T2 PO (10:12)
[2022-12-07] MEDS ORDERED: AMOX875T2 PO (10:12)
== END 2022-12-07 12:35 | DRG 637 ==
LOC: M MS5PR 13:40 → M ICU 11-27 15:38 → M PCU 11-29 18:53 → M MSPAV 12-06 18:36
PROVIDERS: ADMIT Internal Medicine; ATTEND Internal Medicine
PROC: 02HV33Z Insertion of Infusion Device into Superior Vena Cava, Percutaneous Approach (ICD-10-PCS; principal; 2022-11-28 09:00)
DX: E11.69 Type 2 diabetes mellitus with other specified complication (principal); L89.154 Pressure ulcer of sacral region, stage 4; M86.9 Osteomyelitis, unspecified; L02.31 Cutaneous abscess of buttock; I96 Gangrene, not elsewhere classified; J90 Pleural effusion, not elsewhere classified; J45.909 Unspecified asthma, uncomplicated; G20 Parkinson's disease; I10 Essential (primary) hypertension; I25.10 Atherosclerotic heart disease of native coronary artery without angina pectoris; D75.829 Heparin-induced thrombocytopenia, unspecified; L89.150 Pressure ulcer of sacral region, unstageable; R13.12 Dysphagia, oropharyngeal phase; E83.42 Hypomagnesemia; R33.9 Retention of urine, unspecified; D63.8 Anemia in other chronic diseases classified elsewhere; F32.A Depression, unspecified; F41.9 Anxiety disorder, unspecified; Z88.8 Allergy status to other drugs, medicaments and biological substances; Z91.030 Bee allergy status; Z91.013 Allergy to seafood; Z79.899 Other long term (current) drug therapy; Z79.4 Long term (current) use of insulin; Z95.2 Presence of prosthetic heart valve; K56.41 Fecal impaction; K40.90 Unilateral inguinal hernia, without obstruction or gangrene, not specified as recurrent; R19.7 Diarrhea, unspecified; Z79.01 Long term (current) use of anticoagulants

== ENCOUNTER → 2022-12-09 | Outpatient (REF) ==
[~2022-12-09] MED LIST: ACET-910 PO; ALBU2.5V10 INH; AMLO1TAB24 PO; AMOX875T2 PO; BREO1INH INH; CARB1TAB PO; CARB25TA9 PO; FURO20TA2 PO; HYDR-3363 PO; IPRA0.00 INH; LEXA1TAB PO; LISI5TAB11 PO; MAGN400T2 PO; METO25TA4 PO; MIRA1POW3 PO; NOVOINJ SC; ONDA4TAB6 PO; PROB250C PO; PROTPAK PO; TRAM50TA2 PO; WARF-20 PO
[2022-12-09 09:44] LABS: MEAN CORPUSCULAR HEMOGLOBIN 25.8 pg (27.0-33.0); PLATELET COUNT, AUTOMATED 267 10^3/uL (150-450); RED BLOOD COUNT 3.49 10^6/uL (4.00-5.40); WHITE BLOOD COUNT 6.5 10^3/uL (4.0-10.0)
[2022-12-09 09:57] LABS: ERYTHROCYTE SEDIMENTATION RATE 27 mm/hr (0-30)
[2022-12-09 10:09] LABS: INR 3.34; PROTHROMBIN TIME 34.4 SECONDS (12.5-14.5)
[2022-12-09 10:11] LABS: ALBUMIN 2.2 G/DL (3.2-5.2); ALKALINE PHOSPHATASE 106 U/L (46-116); ALT/SGPT 9 U/L (7.0-40); AST/SGOT 17 U/L (<34); BILIRUBIN,TOTAL 0.3 MG/DL (0.3-1.2); BLOOD UREA NITROGEN 11 MG/DL (9-23); CALCIUM LEVEL 7.9 MG/DL (8.3-10.6); CARBON DIOXIDE LEVEL 37 MMOL/L (20-31); CHLORIDE LEVEL 105 MMOL/L (98-107); CHOLESTEROL LEVEL 106 MG/DL (<200); CHOLESTEROL RISK RATIO 2.94 (<5); CREATININE FOR GFR 0.35 MG/DL (0.55-1.30); GLOMERULAR FILTRATION RATE > 60.0 (>45); GLUCOSE, FASTING 131 MG/DL (74-106); IRON (FE) 15 UG/DL (50-170); LDL CHOLESTEROL 54.2 MG/DL (<100); POTASSIUM SERUM 3.5 MMOL/L (3.5-5.1); SODIUM LEVEL 146 MMOL/L (136-145); TOTAL PROTEIN 5.2 G/DL (5.7-8.2); TRIGLYCERIDES LEVEL 79 MG/DL (<150)
[2022-12-09 10:13] LABS: FERRITIN 29.4 NG/ML (7.3-270.7)
== END ==
LOC: SKLAB4 08:43
PROVIDERS: ATTEND Internal Medicine
DX: M86.9 Osteomyelitis, unspecified (principal); L89.159 Pressure ulcer of sacral region, unspecified stage

== ENCOUNTER → 2022-12-12 | Outpatient (REF) ==
[2022-12-12 08:58] LABS: INR 3.06; PROTHROMBIN TIME 32.1 SECONDS (12.5-14.5)
== END ==
LOC: SKLAB4 08:47
PROVIDERS: ATTEND Internal Medicine
DX: Z95.2 Presence of prosthetic heart valve (principal); Z79.899 Other long term (current) drug therapy

== ENCOUNTER → 2022-12-12 | Outpatient (REF) | LOC: SKLAB4 08:46 | PROVIDERS: ATTEND Internal Medicine | DX: M86.9 Osteomyelitis, unspecified (principal); L89.159 Pressure ulcer of sacral region, unspecified stage; Z53.8 Procedure and treatment not carried out for other reasons ==

== ENCOUNTER 2022-12-16 10:19 | Emergency (ER) | payer MEDICARE, BC ==
[~2022-12-16 10:19] MED LIST changes: -BISA10SU4 PR; -FLEEENE12 PR; -MAGN200T10 PO; -MILKSUS3 PO; -MIRA3350 PO
[2022-12-16 11:31] LABS: BASO % 0.6 % (0.0-1.0); EOS # 0.1 10^3/uL (0.0-0.5); EOS % 1.8 % (0.0-3.0); HEMATOCRIT 30.6 % (36.0-47.0); LYMPH % 14.3 % (24.0-44.0); MEAN CORPUSCULAR HEMOGLOBIN 25.4 pg (27.0-33.0); MEAN CORPUSCULAR HGB CONC 29.4 g/dl (32.0-36.5); MEAN CORPUSCULAR VOLUME 86.4 fl (80.0-96.0); MONO # 0.5 10^3/uL (0.0-0.8); NEUTROPHILS # 5.1 10^3/uL (1.5-8.5); NEUTROPHILS % 75.9 % (36.0-66.0); PLATELET COUNT, AUTOMATED 200 10^3/uL (150-450); RED BLOOD COUNT 3.54 10^6/uL (4.00-5.40); WHITE BLOOD COUNT 6.8 10^3/uL (4.0-10.0)
[2022-12-16 11:47] LABS: PARTIAL THROMBOPLASTIN TIME 37.8 SECONDS (24.8-34.2)
[2022-12-16] MEDS ORDERED: FURO20TA2 PO (11:49)
[2022-12-16] MEDS ORDERED: FLEEENE12 PR (11:49)
[2022-12-16] MEDS ORDERED: MIRA3350 PO (11:49)
[2022-12-16] MEDS ORDERED: MILKSUS3 PO (11:49)
[2022-12-16] MEDS ORDERED: AMOX875T2 PO (11:49)
[2022-12-16] MEDS ORDERED: BISA10SU4 PR (11:49)
[2022-12-16] MEDS ORDERED: MAGN200T10 PO (11:49)
[2022-12-16] MEDS ORDERED: HOME MED LIST COMPLETE! XX SCH (11:50)
[2022-12-16 11:56] LABS: BLOOD UREA NITROGEN 20 MG/DL (9-23); CALCIUM LEVEL 8.1 MG/DL (8.3-10.6); CARBON DIOXIDE LEVEL 38 MMOL/L (20-31); CHLORIDE LEVEL 99 MMOL/L (98-107); CREATININE FOR GFR 0.37 MG/DL (0.55-1.30); GLOMERULAR FILTRATION RATE > 60.0 (>45); GLUCOSE, FASTING 165 MG/DL (74-106); POTASSIUM SERUM 3.9 MMOL/L (3.5-5.1); SODIUM LEVEL 141 MMOL/L (136-145)
[2022-12-16 12:29] LABS: RSV AMPLIFICATION NEGATIVE (NEGATIVE)
[2022-12-16 13:47] LABS: INR 1.88; PROTHROMBIN TIME 21.9 SECONDS (12.5-14.5)
[2022-12-16 14:30] VITALS: BP 130/63
== END 2022-12-16 14:49 | disposition home or self-care (01) ==
LOC: M ED 10:19 → EDBD 10:19 → M ED 14:49
DX: S00.03XA Contusion of scalp, initial encounter (principal); W19.XXXA Unspecified fall, initial encounter; Y92.129 Unspecified place in nursing home as the place of occurrence of the external cause; E11.9 Type 2 diabetes mellitus without complications; I10 Essential (primary) hypertension; G20 Parkinson's disease; Z88.1 Allergy status to other antibiotic agents; Z79.4 Long term (current) use of insulin; Z79.899 Other long term (current) drug therapy

== ENCOUNTER → 2022-12-16 | Outpatient (REF) ==
[~2022-12-16] MED LIST changes: +BISA10SU4 PR; +FLEEENE12 PR; +MAGN200T10 PO; +MILKSUS3 PO; +MIRA3350 PO
[2022-12-16 08:46] LABS: HEMATOCRIT 32.5 % (36.0-47.0); HEMOGLOBIN 9.6 g/dl (12.0-15.5); MEAN CORPUSCULAR HEMOGLOBIN 25.3 pg (27.0-33.0); MEAN CORPUSCULAR HGB CONC 29.5 g/dl (32.0-36.5); MEAN CORPUSCULAR VOLUME 85.5 fl (80.0-96.0); PLATELET COUNT, AUTOMATED 235 10^3/uL (150-450); WHITE BLOOD COUNT 6.8 10^3/uL (4.0-10.0)
[2022-12-16 08:55] LABS: INR 1.92; PROTHROMBIN TIME 22.3 SECONDS (12.5-14.5)
[2022-12-16 09:08] LABS: BLOOD UREA NITROGEN 20 MG/DL (9-23); CALCIUM LEVEL 8.1 MG/DL (8.3-10.6); CARBON DIOXIDE LEVEL 38 MMOL/L (20-31); CHLORIDE LEVEL 101 MMOL/L (98-107); CREATININE FOR GFR 0.35 MG/DL (0.55-1.30); GLOMERULAR FILTRATION RATE > 60.0 (>45); GLUCOSE, FASTING 136 MG/DL (74-106); POTASSIUM SERUM 3.6 MMOL/L (3.5-5.1); SODIUM LEVEL 142 MMOL/L (136-145)
[2022-12-16 09:14] LABS: ERYTHROCYTE SEDIMENTATION RATE 33 mm/hr (0-30)
== END ==
LOC: SKLAB4 08:26
PROVIDERS: ATTEND Internal Medicine
DX: M86.9 Osteomyelitis, unspecified (principal)

== ENCOUNTER → 2022-12-19 | Outpatient (REF) ==
[~2022-12-19] MED LIST changes: +BISA10SU4 PR; +FLEEENE12 PR; +MAGN200T10 PO; +MILKSUS3 PO; +MIRA3350 PO
[2022-12-19 08:25] LABS: INR 1.55; PROTHROMBIN TIME 18.9 SECONDS (12.5-14.5)
== END ==
LOC: SKLAB4 08:11
PROVIDERS: ATTEND Internal Medicine
DX: I48.91 Unspecified atrial fibrillation (principal)

== ENCOUNTER → 2022-12-23 | Outpatient (REF) ==
[2022-12-23 08:07] LABS: HEMATOCRIT 32.4 % (36.0-47.0); HEMOGLOBIN 9.7 g/dl (12.0-15.5); MEAN CORPUSCULAR HEMOGLOBIN 25.8 pg (27.0-33.0); MEAN CORPUSCULAR HGB CONC 29.9 g/dl (32.0-36.5); MEAN CORPUSCULAR VOLUME 86.2 fl (80.0-96.0); PLATELET COUNT, AUTOMATED 265 10^3/uL (150-450); RED BLOOD COUNT 3.76 10^6/uL (4.00-5.40); WHITE BLOOD COUNT 8.4 10^3/uL (4.0-10.0)
[2022-12-23 08:18] LABS: INR 1.16
[2022-12-23 08:24] LABS: ERYTHROCYTE SEDIMENTATION RATE 26 mm/hr (0-30)
[2022-12-23 08:29] LABS: BLOOD UREA NITROGEN 23 MG/DL (9-23); CALCIUM LEVEL 8.5 MG/DL (8.3-10.6); CARBON DIOXIDE LEVEL 38 MMOL/L (20-31); CHLORIDE LEVEL 99 MMOL/L (98-107); GLOMERULAR FILTRATION RATE > 60.0 (>45); GLUCOSE, FASTING 149 MG/DL (74-106); POTASSIUM SERUM 4.1 MMOL/L (3.5-5.1); SODIUM LEVEL 139 MMOL/L (136-145)
== END ==
LOC: SKLAB4 10:01
PROVIDERS: ATTEND Internal Medicine
DX: I48.91 Unspecified atrial fibrillation (principal)

== ENCOUNTER → 2022-12-26 | Outpatient (REF) ==
[2022-12-26 07:59] LABS: HEMATOCRIT 33.3 % (36.0-47.0); HEMOGLOBIN 9.8 g/dl (12.0-15.5); MEAN CORPUSCULAR HEMOGLOBIN 25.7 pg (27.0-33.0); MEAN CORPUSCULAR HGB CONC 29.4 g/dl (32.0-36.5); MEAN CORPUSCULAR VOLUME 87.4 fl (80.0-96.0); PLATELET COUNT, AUTOMATED 247 10^3/uL (150-450); RED BLOOD COUNT 3.81 10^6/uL (4.00-5.40); WHITE BLOOD COUNT 8.9 10^3/uL (4.0-10.0)
[2022-12-26 08:07] LABS: INR 1.35; PROTHROMBIN TIME 16.9 SECONDS (12.5-14.5)
== END ==
LOC: SKLAB4 08:06
PROVIDERS: ATTEND Internal Medicine
DX: I48.91 Unspecified atrial fibrillation (principal)

== ENCOUNTER → 2022-12-26 | Outpatient (REF) | LOC: SKLAB4 08:08 | PROVIDERS: ATTEND Internal Medicine | DX: Z79.01 Long term (current) use of anticoagulants (principal); Z53.8 Procedure and treatment not carried out for other reasons ==

== ENCOUNTER → 2022-12-28 | Outpatient (REF) ==
[2022-12-28 07:35] LABS: HEMATOCRIT 32.3 % (36.0-47.0); HEMOGLOBIN 9.6 g/dl (12.0-15.5); MEAN CORPUSCULAR HEMOGLOBIN 25.7 pg (27.0-33.0); MEAN CORPUSCULAR HGB CONC 29.7 g/dl (32.0-36.5); MEAN CORPUSCULAR VOLUME 86.6 fl (80.0-96.0); PLATELET COUNT, AUTOMATED 253 10^3/uL (150-450); RED BLOOD COUNT 3.73 10^6/uL (4.00-5.40); WHITE BLOOD COUNT 11.3 10^3/uL (4.0-10.0)
[2022-12-28 07:52] LABS: INR 1.44; PROTHROMBIN TIME 17.8 SECONDS (12.5-14.5)
== END ==
LOC: SKLAB4 08:28
PROVIDERS: ATTEND Internal Medicine
DX: N18.9 Chronic kidney disease, unspecified (principal); D63.1 Anemia in chronic kidney disease

== ENCOUNTER → 2022-12-30 | Outpatient (REF) ==
[2022-12-30 07:44] LABS: HEMATOCRIT 30.2 % (36.0-47.0); HEMOGLOBIN 8.8 g/dl (12.0-15.5); MEAN CORPUSCULAR HEMOGLOBIN 25.1 pg (27.0-33.0); MEAN CORPUSCULAR HGB CONC 29.1 g/dl (32.0-36.5); PLATELET COUNT, AUTOMATED 220 10^3/uL (150-450); RED BLOOD COUNT 3.51 10^6/uL (4.00-5.40); WHITE BLOOD COUNT 8.1 10^3/uL (4.0-10.0)
[2022-12-30 07:56] LABS: INR 1.35; PROTHROMBIN TIME 16.9 SECONDS (12.5-14.5)
[2022-12-30 08:13] LABS: BLOOD UREA NITROGEN 26 MG/DL (9-23); CALCIUM LEVEL 8.5 MG/DL (8.3-10.6); CARBON DIOXIDE LEVEL 37 MMOL/L (20-31); CHLORIDE LEVEL 100 MMOL/L (98-107); GLOMERULAR FILTRATION RATE > 60.0 (>45); GLUCOSE, FASTING 143 MG/DL (74-106); POTASSIUM SERUM 4.2 MMOL/L (3.5-5.1); SODIUM LEVEL 139 MMOL/L (136-145)
[2022-12-30 08:26] LABS: ERYTHROCYTE SEDIMENTATION RATE 29 mm/hr (0-30)
== END ==
LOC: SKLAB4 08:19
PROVIDERS: ATTEND Internal Medicine
DX: N18.9 Chronic kidney disease, unspecified (principal); D63.1 Anemia in chronic kidney disease

== ENCOUNTER 2023-01-01 15:45 | Emergency (ER) | payer MEDICARE, BC ==
[~2023-01-01] VITALS: Ht 170.2 cm; Wt 65.5 kg
[2023-01-01 17:01] LABS: HEMATOCRIT 30.6 % (36.0-47.0); HEMOGLOBIN 9.1 g/dl (12.0-15.5); MEAN CORPUSCULAR HEMOGLOBIN 25.3 pg (27.0-33.0); MEAN CORPUSCULAR HGB CONC 29.7 g/dl (32.0-36.5); MEAN CORPUSCULAR VOLUME 85.2 fl (80.0-96.0); PLATELET COUNT, AUTOMATED 295 10^3/uL (150-450); RED BLOOD COUNT 3.59 10^6/uL (4.00-5.40); WHITE BLOOD COUNT 13.3 10^3/uL (4.0-10.0)
[2023-01-01 17:12] LABS: INR 1.84; PROTHROMBIN TIME 21.6 SECONDS (12.5-14.5)
[2023-01-01 17:30] VITALS: BP 146/67
== END 2023-01-01 18:15 | disposition home or self-care (01) ==
LOC: M ED 15:45
DX: S32.2XXA Fracture of coccyx, initial encounter for closed fracture (principal); S32.19XA Other fracture of sacrum, initial encounter for closed fracture; W19.XXXA Unspecified fall, initial encounter; M85.80 Other specified disorders of bone density and structure, unspecified site; M47.9 Spondylosis, unspecified; M25.78 Osteophyte, vertebrae; M48.02 Spinal stenosis, cervical region; M43.12 Spondylolisthesis, cervical region; E04.1 Nontoxic single thyroid nodule; E11.9 Type 2 diabetes mellitus without complications; I10 Essential (primary) hypertension; Z87.81 Personal history of (healed) traumatic fracture; Z79.4 Long term (current) use of insulin; Z79.01 Long term (current) use of anticoagulants; Z79.899 Other long term (current) drug therapy; Z88.8 Allergy status to other drugs, medicaments and biological substances; Z91.030 Bee allergy status; Z91.013 Allergy to seafood

== ENCOUNTER → 2023-01-02 | Outpatient (REF) ==
[2023-01-02 07:47] LABS: INR 2.29; PROTHROMBIN TIME 25.6 SECONDS (12.5-14.5)
== END ==
LOC: SKLAB4 10:02
PROVIDERS: ATTEND Internal Medicine
DX: I48.91 Unspecified atrial fibrillation (principal)

== ENCOUNTER → 2023-01-04 | Outpatient (REF) ==
[2023-01-04 07:15] LABS: HEMATOCRIT 28.6 % (36.0-47.0); HEMOGLOBIN 8.5 g/dl (12.0-15.5); MEAN CORPUSCULAR HEMOGLOBIN 24.9 pg (27.0-33.0); MEAN CORPUSCULAR HGB CONC 29.7 g/dl (32.0-36.5); MEAN CORPUSCULAR VOLUME 83.9 fl (80.0-96.0); PLATELET COUNT, AUTOMATED 235 10^3/uL (150-450); RED BLOOD COUNT 3.41 10^6/uL (4.00-5.40); WHITE BLOOD COUNT 10.7 10^3/uL (4.0-10.0)
[2023-01-04 07:29] LABS: INR 2.93
== END ==
LOC: SKLAB4 08:09
PROVIDERS: ATTEND Internal Medicine
DX: I48.91 Unspecified atrial fibrillation (principal); D64.9 Anemia, unspecified

== ENCOUNTER → 2023-01-06 | Outpatient (REF) | LOC: SKLAB4 08:05 | PROVIDERS: ATTEND Internal Medicine | DX: I48.91 Unspecified atrial fibrillation (principal); D64.9 Anemia, unspecified; Z53.8 Procedure and treatment not carried out for other reasons ==

== ENCOUNTER → 2023-01-06 | Outpatient (REF) ==
[2023-01-06 07:39] LABS: INR 3.08; PROTHROMBIN TIME 32.3 SECONDS (12.5-14.5)
[2023-01-06 07:54] LABS: BLOOD UREA NITROGEN 24 MG/DL (9-23); CALCIUM LEVEL 7.4 MG/DL (8.3-10.6); CARBON DIOXIDE LEVEL 36 MMOL/L (20-31); CHLORIDE LEVEL 102 MMOL/L (98-107); CREATININE FOR GFR 0.36 MG/DL (0.55-1.30); GLOMERULAR FILTRATION RATE > 60.0 (>45); GLUCOSE, FASTING 143 MG/DL (74-106); POTASSIUM SERUM 3.8 MMOL/L (3.5-5.1); SODIUM LEVEL 140 MMOL/L (136-145)
[2023-01-06 09:16] LABS: HEMATOCRIT 28.9 % (36.0-47.0); HEMOGLOBIN 8.5 g/dl (12.0-15.5); MEAN CORPUSCULAR HEMOGLOBIN 24.9 pg (27.0-33.0); MEAN CORPUSCULAR HGB CONC 29.4 g/dl (32.0-36.5); MEAN CORPUSCULAR VOLUME 84.5 fl (80.0-96.0); PLATELET COUNT, AUTOMATED 207 10^3/uL (150-450); RED BLOOD COUNT 3.42 10^6/uL (4.00-5.40); WHITE BLOOD COUNT 8.3 10^3/uL (4.0-10.0)
[2023-01-06 09:43] LABS: ERYTHROCYTE SEDIMENTATION RATE 39 mm/hr (0-30)
== END ==
LOC: SKLAB4 01-02 15:17
PROVIDERS: ATTEND Internal Medicine
DX: D64.9 Anemia, unspecified (principal); I48.91 Unspecified atrial fibrillation

== ENCOUNTER → 2023-01-10 | Outpatient (REF) ==
[2023-01-09 07:23] LABS: INR 2.85; PROTHROMBIN TIME 30.4 SECONDS (12.5-14.5)
== END ==
LOC: SKLAB4 13:39
PROVIDERS: ATTEND Internal Medicine
DX: I48.91 Unspecified atrial fibrillation (principal); D64.9 Anemia, unspecified

== ENCOUNTER → 2023-01-13 | Outpatient (REF) ==
[2023-01-13 07:25] LABS: HEMATOCRIT 29.2 % (36.0-47.0); HEMOGLOBIN 8.6 g/dl (12.0-15.5); MEAN CORPUSCULAR HEMOGLOBIN 24.1 pg (27.0-33.0); MEAN CORPUSCULAR HGB CONC 29.5 g/dl (32.0-36.5); MEAN CORPUSCULAR VOLUME 81.8 fl (80.0-96.0); PLATELET COUNT, AUTOMATED 208 10^3/uL (150-450); RED BLOOD COUNT 3.57 10^6/uL (4.00-5.40); WHITE BLOOD COUNT 8.1 10^3/uL (4.0-10.0)
[2023-01-13 07:40] LABS: BLOOD UREA NITROGEN 21 MG/DL (9-23); CALCIUM LEVEL 7.6 MG/DL (8.3-10.6); CARBON DIOXIDE LEVEL 38 MMOL/L (20-31); CHLORIDE LEVEL 100 MMOL/L (98-107); CREATININE FOR GFR 0.36 MG/DL (0.55-1.30); GLOMERULAR FILTRATION RATE > 60.0 (>45); GLUCOSE, FASTING 132 MG/DL (74-106); INR 2.52; POTASSIUM SERUM 3.9 MMOL/L (3.5-5.1); PROTHROMBIN TIME 27.6 SECONDS (12.5-14.5); SODIUM LEVEL 140 MMOL/L (136-145)
[2023-01-13 08:17] LABS: ERYTHROCYTE SEDIMENTATION RATE 31 mm/hr (0-30)
== END ==
LOC: SKLAB4 07:00
PROVIDERS: ATTEND Internal Medicine
DX: I48.91 Unspecified atrial fibrillation (principal); D64.9 Anemia, unspecified

== ENCOUNTER → 2023-01-16 | Outpatient (REF) ==
[2023-01-16 08:08] LABS: INR 2.78; PROTHROMBIN TIME 29.8 SECONDS (12.5-14.5)
== END ==
LOC: SKLAB4 08:23
PROVIDERS: ATTEND Internal Medicine
DX: I48.91 Unspecified atrial fibrillation (principal)

== ENCOUNTER 2023-01-19 10:25 | Emergency (ER) | payer MEDICARE, BC ==
[~2023-01-19] VITALS: Ht 162.6 cm; Wt 65.0 kg
[2023-01-19] MEDS ORDERED: BOOSTRIX VACCINE (TETANUS/DIPHTH/ACEL. PERTUSSIS) 0.5ML SYR IM.IMMUN ONE (11:05)
[2023-01-19 11:31] LABS: BASO # 0.1 10^3/uL (0.0-0.2); BASO % 0.7 % (0.0-1.0); EOS % 0.4 % (0.0-3.0); HEMATOCRIT 27.9 % (36.0-47.0); HEMOGLOBIN 8.2 g/dl (12.0-15.5); LYMPH # 0.9 10^3/uL (1.5-5.0); LYMPH % 13.9 % (24.0-44.0); MEAN CORPUSCULAR HGB CONC 29.4 g/dl (32.0-36.5); MEAN CORPUSCULAR VOLUME 81.8 fl (80.0-96.0); MONO # 0.4 10^3/uL (0.0-0.8); MONO % 6.1 % (2.0-8.0); NEUTROPHILS # 5.3 10^3/uL (1.5-8.5); NEUTROPHILS % 78.6 % (36.0-66.0); PLATELET COUNT, AUTOMATED 246 10^3/uL (150-450); RED BLOOD COUNT 3.41 10^6/uL (4.00-5.40); WHITE BLOOD COUNT 6.7 10^3/uL (4.0-10.0)
[2023-01-19 11:45] LABS: INR 2.38; PROTHROMBIN TIME 26.4 SECONDS (12.5-14.5)
[2023-01-19 11:50] LABS: ALBUMIN 2.5 G/DL (3.2-5.2); ALKALINE PHOSPHATASE 93 U/L (46-116); ALT/SGPT < 9 U/L (7.0-40); AST/SGOT 23 U/L (<34); BILIRUBIN,DIRECT < 0.1 MG/DL (<0.4); BILIRUBIN,TOTAL 0.2 MG/DL (0.3-1.2); BLOOD UREA NITROGEN 29 MG/DL (9-23); CALCIUM LEVEL 7.8 MG/DL (8.3-10.6); CARBON DIOXIDE LEVEL 39 MMOL/L (20-31); CHLORIDE LEVEL 99 MMOL/L (98-107); CREATININE FOR GFR 0.48 MG/DL (0.55-1.30); GLOMERULAR FILTRATION RATE > 60.0 (>45); GLUCOSE, FASTING 122 MG/DL (74-106); POTASSIUM SERUM 4.6 MMOL/L (3.5-5.1); SODIUM LEVEL 139 MMOL/L (136-145); TOTAL PROTEIN 5.9 G/DL (5.7-8.2)
[2023-01-19 12:09] LABS: RSV AMPLIFICATION NEGATIVE (NEGATIVE)
[2023-01-19] MEDS ORDERED: PHYTONADIONE INJection 10 MG in NS 50 ML IV ONE (12:30)
[2023-01-19 13:47] VITALS: BP 136/65; TEMP 97.5; O2SAT 99
[2023-01-19 14:00] VITALS: BP 145/67; TEMP 97.5; O2SAT 98
[2023-01-19 14:34] VITALS: BP 143/67; TEMP 97.5; O2SAT 98
[2023-01-19 14:40] VITALS: O2SAT 99
[2023-01-19 14:45] VITALS: BP 143/69
== END 2023-01-19 14:56 | disposition short-term general hospital (02) ==
LOC: M ED 10:25 → EDBD 10:25 → M ED 14:56
DX: S06.5X0A Traumatic subdural hemorrhage without loss of consciousness, initial encounter (principal); W19.XXXA Unspecified fall, initial encounter; Y92.129 Unspecified place in nursing home as the place of occurrence of the external cause; I10 Essential (primary) hypertension; E11.9 Type 2 diabetes mellitus without complications; G20 Parkinson's disease; Z86.16 Personal history of COVID-19; Z95.2 Presence of prosthetic heart valve; Z79.4 Long term (current) use of insulin; Z79.01 Long term (current) use of anticoagulants; Z79.899 Other long term (current) drug therapy; Z88.8 Allergy status to other drugs, medicaments and biological substances; Z91.013 Allergy to seafood; Z91.030 Bee allergy status
CPT/HCPCS: 36430; 70450; 70486; 71045; 72125; 80048; 80076; 85025; 85610; 85730; 86850; 86900; 86901; 86927; 87631; 93005; 96374; 99285; J3430; P9017

== ENCOUNTER → 2023-01-19 | Outpatient (CLI) | payer MEDICARE, BC | LOC: M RAD 08:39 | PROVIDERS: ATTEND Internal Medicine | DX: S06.5X0A Traumatic subdural hemorrhage without loss of consciousness, initial encounter (principal); W19.XXXA Unspecified fall, initial encounter ==

== ENCOUNTER → 2023-01-20 | Outpatient (REF) | LOC: SKLAB4 14:00 | PROVIDERS: ATTEND Internal Medicine | DX: I48.91 Unspecified atrial fibrillation (principal); Z53.8 Procedure and treatment not carried out for other reasons ==

== ENCOUNTER → 2023-01-23 | Outpatient (REF) ==
[2023-01-23 08:22] LABS: PROTHROMBIN TIME 13.4 SECONDS (12.5-14.5)
== END ==
LOC: SKLAB4 07:51
PROVIDERS: ATTEND Internal Medicine
DX: I48.91 Unspecified atrial fibrillation (principal)